=== PATIENT | female | born 1955 | race Caucasian/White ===

== ENCOUNTER 2023-09-06 12:58 | Outpatient (OUT) | payer MEDICARE, OTHER, SELFPAY ==
--- NOTE | 2023-09-06 | XR_ITS ---
The [address] [address] Patient Name: HÉCTOR PRIEST MRN: [id number] date: 1955 Sex: F Assigned Patient Location: [facility] Current Patient Location: [facility] Accession/Order Number: [id number] Exam Date: 09/06/2023 13:40 Report Date: 09/06/2023 14:42 At the request of: SANDY TUCKER Procedure: XR ankle LT min 3V EXAMINATION: XR ankle RT min 3V, XR foot RT min 3V, XR ankle LT min 3V, XR foot LT min 3V HISTORY: RIGHT ANKLE PAIN COMPARISON: 08/24/2023, 08/21/2023 FINDINGS: RIGHT FINDINGS: BONES: Normal. No significant arthropathy or acute abnormality. SOFT TISSUES: Mild ankle soft tissue swelling OTHER: Negative. LEFT FINDINGS: BONES: Subtle cortical irregularity and sclerosis of the calcaneus consistent with healing fracture. No new fracture or dislocation. SOFT TISSUES: Moderate soft tissue swelling of the ankle OTHER: Negative. XR/XR ankle LT min 3V IMPRESSION: RIGHT CONCLUSION: Mild ankle soft tissue swelling LEFT CONCLUSION: Subacute healing calcaneus fracture Electronically authenticated by: INÉS DELGADILLO Date: 09/06/2023 14:42
--- NOTE | 2023-09-06 | XR_ITS ---
The [address] [address] Patient Name: HÉCTOR PRIEST MRN: [id number] date: 1955 Sex: F Assigned Patient Location: [facility] Current Patient Location: [facility] Accession/Order Number: [id number] Exam Date: 09/06/2023 13:40 Report Date: 09/06/2023 14:42 At the request of: SANDY TUCKER Procedure: XR foot LT min 3V EXAMINATION: XR ankle RT min 3V, XR foot RT min 3V, XR ankle LT min 3V, XR foot LT min 3V HISTORY: RIGHT ANKLE PAIN COMPARISON: 08/24/2023, 08/21/2023 FINDINGS: RIGHT FINDINGS: BONES: Normal. No significant arthropathy or acute abnormality. SOFT TISSUES: Mild ankle soft tissue swelling OTHER: Negative. LEFT FINDINGS: BONES: Subtle cortical irregularity and sclerosis of the calcaneus consistent with healing fracture. No new fracture or dislocation. SOFT TISSUES: Moderate soft tissue swelling of the ankle OTHER: Negative. XR/XR foot LT min 3V IMPRESSION: RIGHT CONCLUSION: Mild ankle soft tissue swelling LEFT CONCLUSION: Subacute healing calcaneus fracture Electronically authenticated by: INÉS DELGADILLO Date: 09/06/2023 14:42
--- NOTE | 2023-09-06 | XR_ITS ---
The [address] [address] Patient Name: HÉCTOR PRIEST MRN: [id number] date: 1955 Sex: F Assigned Patient Location: [facility] Current Patient Location: [facility] Accession/Order Number: [id number] Exam Date: 09/06/2023 13:40 Report Date: 09/06/2023 14:42 At the request of: SANDY TUCKER Procedure: XR ankle RT min 3V EXAMINATION: XR ankle RT min 3V, XR foot RT min 3V, XR ankle LT min 3V, XR foot LT min 3V HISTORY: RIGHT ANKLE PAIN COMPARISON: 08/24/2023, 08/21/2023 FINDINGS: RIGHT FINDINGS: BONES: Normal. No significant arthropathy or acute abnormality. SOFT TISSUES: Mild ankle soft tissue swelling OTHER: Negative. LEFT FINDINGS: BONES: Subtle cortical irregularity and sclerosis of the calcaneus consistent with healing fracture. No new fracture or dislocation. SOFT TISSUES: Moderate soft tissue swelling of the ankle OTHER: Negative. XR/XR ankle RT min 3V IMPRESSION: RIGHT CONCLUSION: Mild ankle soft tissue swelling LEFT CONCLUSION: Subacute healing calcaneus fracture Electronically authenticated by: INÉS DELGADILLO Date: 09/06/2023 14:42
--- NOTE | 2023-09-06 | XR_ITS ---
The [address] [address] Patient Name: HÉCTOR PRIEST MRN: [id number] date: 1955 Sex: F Assigned Patient Location: [facility] Current Patient Location: [facility] Accession/Order Number: [id number] Exam Date: 09/06/2023 13:40 Report Date: 09/06/2023 14:42 At the request of: SANDY TUCKER Procedure: XR foot RT min 3V EXAMINATION: XR ankle RT min 3V, XR foot RT min 3V, XR ankle LT min 3V, XR foot LT min 3V HISTORY: RIGHT ANKLE PAIN COMPARISON: 08/24/2023, 08/21/2023 FINDINGS: RIGHT FINDINGS: BONES: Normal. No significant arthropathy or acute abnormality. SOFT TISSUES: Mild ankle soft tissue swelling OTHER: Negative. LEFT FINDINGS: BONES: Subtle cortical irregularity and sclerosis of the calcaneus consistent with healing fracture. No new fracture or dislocation. SOFT TISSUES: Moderate soft tissue swelling of the ankle OTHER: Negative. XR/XR foot RT min 3V IMPRESSION: RIGHT CONCLUSION: Mild ankle soft tissue swelling LEFT CONCLUSION: Subacute healing calcaneus fracture Electronically authenticated by: INÉS DELGADILLO Date: 09/06/2023 14:42
== END 2023-09-06 12:59 | disposition home or self-care (01) ==
LOC: RAD 12:59
PROVIDERS: Visit Provider Podiatrist Foot & Ankle Surgery
DX: M79.672 Pain in left foot (principal); M25.572 Pain in left ankle and joints of left foot; M79.671 Pain in right foot; M25.571 Pain in right ankle and joints of right foot; M25.471 Effusion, right ankle; S92.002D Unspecified fracture of left calcaneus, subsequent encounter for fracture with routine healing
CPT/HCPCS: 73610; 73630

== ENCOUNTER 2023-09-22 14:37 | Outpatient (OUT) | payer MEDICARE, OTHER, SELFPAY ==
--- NOTE | 2023-09-22 | XR_ITS ---
[address] [address] Patient Name: HÉCTOR PRIEST MRN: [id number] date: 1955 Sex: F Assigned Patient Location: [facility] Current Patient Location: Accession/Order Number: [id number] Exam Date: 09/22/2023 14:50 Report Date: 09/24/2023 18:14 At the request of: SANDY TUCKER Procedure: XR foot LT min 3V EXAM: XR foot LT min 3V HISTORY: LEFT FOOT F/U IMAGING COMPARISON: 09/06/2023 FINDINGS/IMPRESSION: 1. Healing fracture through the mid calcaneus with sclerosis along the fracture line. The alignment is similar as compared to the prior exam. 2. No ankle joint effusion. 3. Normal alignment of the bones of the forefoot. No significant joint degeneration. Electronically authenticated by: SAMRA SANTIAGO Date: 09/24/2023 18:14
--- OUTSIDE RECORDS SUMMARY | 2023-09-22 14:41 | XMS_ITS | CCD ---
Author Name Unknown Address [address] [facility] [facility] [address] [place] [address] Organization [facility] Care Team Providers [place] Adviser Name Role Phone DO Rashard Flower Primary Care Provider [phone] CHAGO Hernandez Emergency Provider DO Heath Rubin Attending Provider Heath Rubin Unavailable Josue Hernandez Admitting Unavailable Josue Hernandez Attending Unavailable Rashard Flower Primary Care Unavailable Heath Rubin Admitting Unavailable Heath Rubin Attending Unavailable Rashard Flower Primary Care Unavailable Heath Rubin Attending Unavailable Rashard Flower Primary Care Unavailable Heath Rubin Admitting Unavailable Allergies Allergy Classification Reported Allergen(s) Allergy Type Date of Onset Reaction(s) Facility (3 sources) Penicillins; Translations: [Penicillins] Allergy to substance 3 Anaphylaxis [facility] (2 sources) Bee pollen Drug Allergy Eyes [employer] Other (2 sources) Penicillin G Drug Allergy eyes [employer] [employer] [facility] Other Medications Current Medications Medication Drug Class(es) Dates Sig (Normalized) Sig (Original) acetaminophen 325 mg / oxyCODONE hydrochloride 5 mg oral tablet (2 sources) Opioid Agonist Start: 08-21-2023 take 1 tablet by mouth every eight hours Oxycodone-Acetami nophen (Percocet) 5-325 mg tablet Active 1 TAB PO Q8H 10 3 August 21, 2023 Completed/Discontinued Medications Medication Drug Class(es) Dates Sig (Normalized) Sig (Original) acyclovir 400 mg oral tablet (2 sources) Herpesvirus Nucleoside Analog DNA Polymerase Inhibitor, Herpes Simplex Virus Nucleoside Analog DNA Polymerase Inhibitor, Herpes Zoster Virus Nucleoside Analog DNA Polymerase Inhibitor Start: 06-15-2018 End: 06-22-2018 Acyclovir Discontinued 800 MG PO 5 times per day 70 7 June 14, 2018 11:00pm June 21, 2018 11:01pm while awake; give 5 doses in 24 hours calamine 80 mg/ml / pramoxine hydrochloride 10 mg/ml topical lotion (2 sources) Start: 06-15-2018 End: 11-07-2018 Pramoxine-Calamine (Caladryl) 1-8 % lotion Discontinued 1 APPLIC TOPICAL Four times daily 177 June 14, 2018 11:00pm November 07, 2018 2:20pm ibuprofen 600 mg oral tablet (2 sources) Nonsteroidal Anti-inflammatory Drug Start: 06-15-2018 End: 11-07-2018 take 600 mg by mouth three times daily Ibuprofen Discontinued 600 MG PO Three times daily June 14, 2018 11:00pm November 07, 2018 2:20pm Problems Problem Classification Problem Date Documented Da te Episodic/Chronic Fracture of lower limb (5 sources) Fracture of calcaneus; Translations: [Unspecified fracture of left calcaneus, initial encounter for closed fracture] Onset: 08-21-2023 08-21-2023 Episodic Other and unspecified benign neoplasm (2 sources) History of polyp of colon; Translations: [Personal history of colonic polyps] Episodic Other connective tissue disease (2 sources) Pain in left lower leg Episodic Other gastrointestinal disorders (2 sources) Occult blood in stools; Translations: [Other fecal abnormalities] 11-10-2018 Episodic Other upper respiratory disease (2 sources) Chronic rhinitis; Translations: [Chronic rhinitis] Chronic Substance-related disorders (2 sources) Smoker; Translations: [Nicotine dependence, unspecified, uncomplicated] Chronic Unclassified (1 source) Nondisplaced other fracture of tuberosity of left calcaneus, initial encounter for closed fracture; Translations: [Nondisplaced other fracture of tuberosity of left calcaneus, initial encounter for closed fracture] Onset: 08-24-2023 Unclassified (1 source) Pain in left lower leg; Translations: [Pain in left lower leg] Onset: 08-22-2023 Unclassified (1 source) Pain in left ankle and joints of left foot; Translations: [Pain in left ankle and joints of left foot] Onset: 08-21-2023 Results Test Name Value Interpretation Reference Range Facil ity CT foot LT wo conon 08-24-20 CT foot LT wo con [facility] Main [place] [id number] CT Scan Report Signed Patient: Elke Priest MR#: [id number] : 1955 Acct:[id number] Age/Sex: 67 / F ADM Date: 08/24/23 Loc: CT Room: Type: [facility] Attending Dr: Heath Rubin DO Copies to: Heath Rubin DO Ordering Provider: Heath Rubin DO Date of Service: 08/24/23 CT/CT foot LT wo con: S92.045a CT left foot without contrast TECHNIQUE: The CT exam was performed using one or more the following dose reduction techniques: Automated exposure control, adjustment of the MA and/or Kv according to patient size, or use of the iterative reconstruction technique. COMPARISON: None HISTORY: Left calcaneus fracture Mildly displaced calcaneal fracture. This involves the anterior process. Calcaneocuboid articulation unremarkable. There is involvement of the posterior facet suspected to involve 3 fragments with minimal articular step-off. There is subtle involvement of the middle facet with a preserved calcaneal talar articulation. No significant extension into the posterior calcaneus. Talus intact. Navicular intact. Cuboid intact. Distal tibia and fibula are intact. CT/CT foot LT wo con IMPRESSION: Mildly displaced calcaneal fracture. Mild posterior facet step-off. Involvement of the anterior process. Impression dictated by: Panfilo Bird M.D.08/24/2023 4:42 PM Dictation Location: [place] [address] Transcribed By: [facility] 08/24/23 1642 Dictated By: Panfilo Bird DO 08/24/23 1604 Signed By: 08/24/23 1642 Normal [facility] US venous duplex LE BIon US venous duplex LE [facility] Main [address] [address] Ultrasound Report Signed Patient: Elke Priest MR#: [id number] : 1955 Acct:[id number] Age/Sex: 67 / F ADM Date: 08/22/23 Loc: Room: [facility] Attending Dr: Heath Rubin DO Ordering Provider: Heath Rubin DO Date of Service: 08/22/23 US/US venous duplex LE BI: M79.662 Copies to: Heath Rubin DO BILATERAL LOWER EXTREMITY VENOUS DUPLEX INDICATION: Bilateral lower extremity edema, pain and tenderness. Recent left foot injury and fracture. PROCEDURE: Color-flow duplex scanning is used to interrogate the deep venous system of the right and left lower extremities. The common femoral vein, femoral vein and popliteal vein show good compressibility with normal proximal and distal augmentation. The calf veins are compressible. US/US venous duplex LE BI IMPRESSION: NO EVIDENCE FOR DEEP VEIN THROMBOSIS OR PROXIMAL SUPERFICIAL THROMBOPHLEBITIS IN THE RIGHT OR LEFT LOWER EXTREMITY. Impression dictated by: Adrian Barlow MD08/23/2023 10:21 AM Dictation Location: [place] [address] Tech: Jane Zepeda Transcribed By: LEIDY 08/23/23 1021 Dictated By: Adrian Barlow MD 08/23/23 1021 Signed By: 08/23/23 1021 Normal [facility] XR foot LT min 3V*on 023 XR foot LT min 3V* [facility] [address] XRay Report Signed Patient: Elke Priest MR#: [id number] : 1955 Acct:[id number] Age/Sex: 67 / F ADM Date: 08/21/23 Loc: ER Room: Type: [facility] ER Attending Dr: Copies to: Josue Hernandez APRN Ordering Provider: Josue Hernandez APRN Date of Service: 08/21/23 XR/XR foot LT min 3V*: Fall ([id number]) XR/XR knee LT 4V*: Fall ([id number]) XR/XR ankle LT min 3V*: Fall 4 views left knee plain film COMPARISON: None HISTORY: Fell 10 days ago. Left ankle swelling. Bruising. Left foot pain. Left knee pain. ACUTE FINDINGS: No acute findings DEGENERATIVE CHANGE: Unremarkable SOFT TISSUE FINDINGS: Unremarkable JOINT EFFUSION: None POSTOP CHANGES: None BONE MINERALIZATION: Adequate XR/XR knee LT 4V* IMPRESSION: No acute findings 3 views left ankle Lateral soft tissue swelling. Adequate bony alignment. The distal calcaneal fracture. IMPRESSION: Lateral soft tissue swelling. Distal calcaneal fracture. 3 views left foot Dorsal soft tissue swelling. Distal calcaneal fracture. No dislocation. IMPRESSION: Distal calcaneal fracture. Impression dictated by: Panfilo Bird M.D.08/21/2023 1:38 PM Dictation Location: [place] [address] Transcribed By: [facility] 08/21/23 1338 Dictated By: Panfilo Bird DO 08/21/23 1332 Signed By: 08/21/23 1338 [facility] Vital Signs Date Time Vital Sign Value Performing Clinician Facility 08-22-2023 13:45-0500 Body height 167.64 cm Heath Rubin Other [facility] Other 08-22-2023 13:45-0500 Body mass index (BMI) [Ratio] 20.01 kg/m2 Heath Rubin Other [facility] Other 08-22-2023 13:45-0500 Body weight 56.25 kg Heath Rubin Other [facility] Other 08-21-2023 12:35-0500 Body height 165.1 cm DO Rashard Oberer Work Phone: [facility] 08-21-2023 12:35-0500 Body temperature 98.5 [degF] DO Rashard Oberer Work Phone: [facility] 08-21-2023 12:35-0500 Body weight 56.69 kg DO Rashard Oberer Work Phone: [facility] 08-21-2023 12:35-0500 Diastolic blood pressure 75 mm[Hg] DO Rashard Oberer Work Phone: [facility] 08-21-2023 12:35-0500 Heart rate 94 /min DO Rashard Oberer Work Phone: [facility] 08-21-2023 12:35-0500 Respiratory rate 18 /min DO Rashard Oberer Work Phone: [facility] 08-21-2023 12:35-0500 SaO2% (BldA) [Mass fraction] 98 % DO Rashard Oberer Work Phone: [facility] 08-21-2023 12:35-0500 Systolic blood pressure 133 mm[Hg] DO Rashard Oberer Work Phone: [facility] Encounters Encounter Date Encounter Type Care Provider Facility Start: 08-29-2023 End: 08-29-2023 ambulatory Heath Rubin Other [facility] Other Start: 08-29-2023 Postop follow up vis it related to original px Heath Rubin [facility] Start: 08-24-2023 End: 08-24-2023 ambulatory Heath Rubin Facility:[facility] Start: 08-22-2023 End: 08-22-2023 ambulatory Heath Rubin Facility:[facility] Start: 08-22-2023 End: 08-22-2023 Patient encounter procedure DO Rashard Oberer Work Phone: [facility] Main [place] Work Phone: Start: 08-22-2023 End: 08-22-2023 ambulatory DO Rashard Oberer Work Phone: [facility] Work Phone: Start: 08-22-2023 FQ[facility] visit new patient Heath Rubin [facility] Start: 08-21-2023 End: 08-21-2023 Emergency department patient visit Josue Hernandez Facility:[facility] Start: 08-21-2023 End: 08-21-2023 Emergency department patient visit DO Rashard Oberer Work Phone: [facility] Work Phone: Procedures Date Procedure Procedure Detail Performing Clinician Start: 08-21-2023 Radiologic examinati on of knee DO Rashard Oberer Work Phone: Start: 08-21-2023 X-ray of left ankle DO Rashard Oberer Work Phone: Start: 08-21-2023 X-ray of left foot DO K arl Oberer Work Phone: Plan of Treatment Date Care Activity Detail Author Start: 08-22-2023 Duplex scan of lower limb veins US venous duplex LE BI [facility] Start: 08-22-2023 US Lower extremity v ein - bilateral [facility] Patient Education Heel Fracture (DC) Walking Boot [facility] Work Phone: Patient referral [facility] Work Phone: Immunizations Immunization Date Immunization Notes Care Provider Greg green NEGATED: Highlighted row has not occurred!10-04-2019 influenza, seasonal, injectable Patient Objection Heath Rubin Other [facility] Other NEGATED: Highlighted row has not occurred!09-29-2018 influenza, seasonal, injectable Patient Objection Heath Rubin Other [facility] Other Payers Date Payer Category Payer Medicare [id number] 2023 Self-pay [id number] 2023 Unknown [id number] Unknown [place] BC/BS [id number] Unknown [id number] Unknown [id number] Unknown [id number] Social History Date Type Detail Facility Start: 08-21-2023 Tobacco smoking status NHIS Smoker (finding) [facility] Start: 1955 Sex Assigned At Female F [facility] Sex Assigned At Sex Assigned At Bir th [facility] Other Evaluation note 08-29-2023 Note Date & Type Note Facility 08-29-2023 Evaluation note Encounter Date Diagnosis Assessment Notes Aug, Pain of left calf (ICD-10 - M79.662) Aug, Other closed nondisplaced fracture of tuberosity of left calcaneus, initial encounter (ICD-10 - S92.045A) CT reviewed with patient and family. Discussed with patient due to the fracture we will refer her to Dr. Hernandez in podiatry to discuss treatment options. Patient placed in AO splint. Instructed to wear splint at all times and to continue nonweight bearing. [facility] Other Evaluation note 08-22-2023 Note Date & Type Note Facility 08-22-2023 Evaluation note Encounter Date Diagnosis Assessment Notes Jul, Pain of left calf (ICD-10 - M79.662) The patient is experiencing posterior calf pain and swelling. We have to consider possible deep venous thrombosis (DVT). We will have the patient to [facility] and obtain an ultrasound of the leg. Patient is scheduled for ultrasound today at 3:00 pm Jul, Other closed nondisplaced fracture of tuberosity of left calcaneus, initial encounter (ICD-10 - S92.045A) Discussed with patient and company on the patient's symptoms, exam, and imaging. Likely etiologies of the patient's symptoms were discussed. Patient is likely suffering from a calcaneus fracture. We will obtain a STAT CT to check for possible surgical treatment options. Patient is scheduled on 08/24/2023 at 2:00 pm. Instructed patient to follow up in office after CT [facility] Other History general Narrative - Reported 11-10-2018 Note Date & Type Note Facility 11-10-2018 History general N arrative - Reported Type Medical History [id number] Surgical History Colonoscopy (+ hemoccult)- poly ps- Dr Rodriguez 11/10/18 [facility] Other Evaluation note Note Date & Type Note Facility Evaluation note No assessment information availa [facility] Work Phone: Chief Complaint and Reason for Visit Chief Complaint left foot inj Chief Complaint left foot inj Left calf pain Advance Directives No Advanced Directives Records Found Advance Directive Response Recorded Date/ Time Advance Directives No May 1:46pm Reason for Referral Reason Dr. Hernandez Diagnosis 1 Other closed nondisp laced fracture of tuberosity of left calcaneus, initial encounter (S92.045A) Referral Organization [facility] Referring Provider First Name Heath Referring Provider Last Name Caryn Referring Provider Specialty Orthopedic Surgery Referred Organization Unknown Facility Referred Provider Specialty Podiatry - S urgical Chiropody Referral Priority Routine Summary Purpose Family History No Family History Records Found Additional Source Comments Care Teams (unrecognized sec tion and content) Team Status: Active Member Role Status Dates Rashard Flower DO Primary Care Provider Active Team Status: Inactive Member Role Status Dates Rashard Flower DO Primary Care Provider Active Josue Hernandez APRN Emergency Provider Active Team Status: Inactive Member Role Status Dates Rashard Flower DO Primary Care Provider Active Heath Rubin DO Attending Provider Active Goals (unrecognized section and content) Goals may be documented in a n alternate sectionGoals may be documented in an alternate sectionNo InformationNo Information REASON FOR VISIT (unrecogniz ed section and content) Left Foot InjuryLeft Foot CT Results INFORMATION SOURCE (unrecogn ized section and content) DATE CREATED AUTHOR 08/30/2023 [facility] FOR RECORDS PERTAINING TO PATIENTS WHO ARE OR HAVE BEEN ENROLLED IN A CHEMICAL DEPENDENCY/SUBSTANCEABUSE PROGRAM, SOME INFORMATION MAY BE OMITTED. This clinical summary was aggregated from multiple sources. Caution should be exercised in using it in the provision of clinical care. This summary normalizes information from multiple sources, and as a consequence, information in this document may materially change the coding, format and clinical context of patient data. In addition, data may be omitted in some cases. CLINICAL DECISIONS SHOULD BE BASED ON THE PRIMARY CLINICAL RECORDS. [employer] [facility]. provides no warranty or guarantee of the accuracy or completeness of information in this document.
== END 2023-09-22 14:38 | disposition home or self-care (01) ==
LOC: RAD 14:37
PROVIDERS: Visit Provider Podiatrist Foot & Ankle Surgery
DX: S92.012D Displaced fracture of body of left calcaneus, subsequent encounter for fracture with routine healing (principal)
CPT/HCPCS: 73630

== ENCOUNTER 2023-10-12 14:42 | Outpatient (OUT) | payer MEDICARE, OTHER, SELFPAY ==
--- NOTE | 2023-10-12 | XR_ITS ---
The [address] [address] Patient Name: HÉCTOR PRIEST MRN: [id number] date: 1955 Sex: F Assigned Patient Location: [facility] Current Patient Location: [facility] Accession/Order Number: [id number] Exam Date: 10/12/2023 14:50 Report Date: 10/12/2023 15:32 At the request of: SANDY TUCKER Procedure: XR foot LT min 3V PROCEDURE: XR foot LT min 3V COMPARISON: 09/22/2023 HISTORY: LEFT FOOT PAIN FINDINGS: BONES:Continued healing of a calcaneus fracture, less evident on the current exam. Interval progression of a diffuse permeative pattern of the bones consistent with osteopenia. No new fracture or dislocation SOFT TISSUES:Diffuse soft tissue swelling EFFUSION:None visible. OTHER: Negative. XR/XR foot LT min 3V IMPRESSION: Stable healing calcaneus fracture with progression of osteopenia Electronically authenticated by: INÉS DELGADILLO Date: 10/12/2023 15:32
--- OUTSIDE RECORDS SUMMARY | 2023-10-12 14:45 | XMS_ITS | CCD ---
Author Name Unknown Address [address] [place] [address] Organization [facility] Care Team Providers Care Archivist Nonprofit Foundation Name Role Phone DO Rashard Folwer Primary Care Provider CHAGO Hernandez Emergency Provider DO Heath Rubin [...] Translations: [Penicillins] Allergy to substance 3 Anaphylaxis [facility] (2 sources) Bee pollen Drug Allergy Eyes Patient Home Monitoring Other (2 sources) Penicillin G Drug Allergy eyes [facility] [employer] [facility] [employer] Other Medications Current Medications Medication Drug Class(es) [...] conon 08-24-20 CT foot LT wo con [facility] Main [place] [id number] CT Scan Report Signed Patient: Elke Priest MR#: [id number] : 1955 Acct:[id number] Age/Sex: 67 / F ADM Date: 08/24/23 Loc: CT Room: Type: [facility] Attending Dr: Heath Rubin DO Copies [...] Panfilo Bird M.D.08/24/2023 4:42 PM Dictation Location: [place] [address] Transcribed By: [facility] 08/24/23 1642 Dictated By: Panfilo Bird DO 08/24/23 1604 Signed By: 08/24/23 1642 Normal [facility] US venous duplex LE BIon US venous duplex LE [facility] Main [address] [address] Ultrasound Report Signed Patient: Elke Priest MR#: [id number] : 1955 Acct:[id number] Age/Sex: 67 / F ADM Date: 08/22/23 Loc: [facility]: [facility] Dr: Heath Rubin DO [...] Adrian Barlow MD08/23/2023 10:21 AM Dictation Location: [place] [address] Tech: Jane Zepeda Transcribed By: LEIDY 08/23/23 1021 Dictated By: Adrian Barlow MD 08/23/23 1021 Signed By: 08/23/23 1021 Normal [facility] XR foot LT min 3V*on 023 XR foot LT min 3V* [place] [address] XRay Report Signed Patient: Elke Priest MR#: [id number] : 1955 Acct:[id number] Age/Sex: 67 / F ADM Date: 08/21/23 Loc: ER Room: Type: [facility] ER Attending Dr: Copies to: Josue Hernandez APRN Ordering Provider: Josue Hernandez APRN Date of Service: 08/21/23 XR/XR foot LT min 3V*: Fall ([id number]) XR/XR knee LT 4V*: Fall ([id number]) XR/XR ankle LT min 3V*: Fall 4 [...] Panfilo Bird M.D.08/21/2023 1:38 PM Dictation Location: [place] [address] Transcribed By: [facility] 08/21/23 1338 Dictated By: Panfilo Bird DO 08/21/23 1332 Signed By: 08/21/23 1338 [facility] Vital Signs Date Time Vital Sign Value Performing Clinician Facility 08-22-2023 13:45-0500 Body height 167.64 cm Heath Rubin Other [employer] Other 08-22-2023 13:45-0500 Body mass index (BMI) [Ratio] 20.01 kg/m2 Heath Rubin Other [employer] [facility] [employer] Other 08-22-2023 13:45-0500 Body weight 56.25 kg Heath Rubin Other [facility] [employer] Other 08-21-2023 12:35-0500 Body height 165.1 cm DO Rashard Oberer Work Phone: [facility] 08-21-2023 12:35-0500 Body temperature 98.5 [degF] DO Rashard Oberer Work Phone: [facility] 08-21-2023 12:35-0500 Body weight 56.69 kg DO Rashard Oberer Work Phone: [facility] 08-21-2023 12:35-0500 Diastolic blood pressure 75 mm[Hg] DO Rashard Oberer Work Phone: [facility] 08-21-2023 12:35-0500 Heart rate 94 /min DO Rashard Oberer Work Phone: [facility] 08-21-2023 12:35-0500 Respiratory rate 18 /min DO Rashard Oberer Work Phone: [facility] 08-21-2023 12:35-0500 SaO2% (BldA) [Mass fraction] 98 % DO Rashard Oberer Work Phone: [facility] 08-21-2023 12:35-0500 Systolic blood pressure 133 mm[Hg] DO Rashard Oberer Work Phone: [facility] Encounters Encounter Date Encounter Type Care Provider Facility Start: 08-29-2023 End: 08-29-2023 ambulatory Heath Rubin Other [employer] Other Start: 08-29-2023 Postop follow up vis it related to original px Heath Rubin [facility] Start: 08-24-2023 End: 08-24-2023 ambulatory Heath Rubin Facility:[facility] Start: 08-22-2023 End: 08-22-2023 ambulatory Heath Rubin Facility:[facility] Start: 08-22-2023 End: 08-22-2023 Patient encounter procedure DO Rashard Oberer Work Phone: [facility] Main [place] Work Phone: Start: 08-22-2023 End: 08-22-2023 ambulatory DO Rashard Oberer Work Phone: [facility] Work Phone: Start: 08-22-2023 FQHC visit new patient Heath Rubin [facility] Start: 08-21-2023 End: 08-21-2023 Emergency department patient visit Josue Hernandez Facility:[facility] Start: 08-21-2023 End: 08-21-2023 Emergency department patient visit DO Rashard Oberer Work Phone: [facility] Work Phone: Procedures Date Procedure [...] limb veins US venous duplex LE BI [facility] Start: 08-22-2023 US Lower extremity v ein - bilateral [facility] Patient Education Heel Fracture (DC) Walking Boot [facility] Work Phone: Patient referral [facility] Work Phone: Immunizations Immunization Date Immunization Notes Care Provider Greg green NEGATED: Highlighted row has not occurred!10-04-2019 influenza, seasonal, injectable Patient Objection Heath Rubin Other [employer] Other NEGATED: Highlighted row has not occurred!09-29-2018 influenza, seasonal, injectable Patient Objection Heath Rubin Other [employer] [facility] [employer] Other Payers Date Payer Category Payer Medicare [id number] 2023 Self-pay [id number] 2023 Unknown [id number] Unknown [place] BC/BS [id number] Unknown [id number] Unknown [id number] [id number] [id number] Unknown [id number] Social History Date Type Detail Facility Start: 08-21-2023 Tobacco smoking status NHIS Smoker (finding) [facility] Start: 1955 Sex Assigned At Female F [facility] Sex Assigned At Sex Assigned At Bir th [employer] [facility] [employer] Other Evaluation note 08-29-2023 Note Date & [...] all times and to continue nonweight bearing. [facility] [employer] Other Evaluation note 08-22-2023 Note Date & Type Note Facility 08-22-2023 Evaluation note Encounter Date Diagnosis Assessment Notes Jul, Pain of left calf (ICD-10 - M79.662) The patient is experiencing posterior calf pain and swelling. We have to consider possible deep venous thrombosis (DVT). We will have the patient to [facility] and obtain an ultrasound of the leg. [...] to follow up in office after CT [facility] [employer] Other History general Narrative - Reported 11-10-2018 Note Date & Type Note Facility 11-10-2018 History general N arrative - Reported Type Medical History [id number] Surgical History Colonoscopy (+ hemoccult)- poly ps- Dr Rodriguez 11/10/18 [facility] [employer] Other Evaluation note Note Date & Type Note Facility Evaluation note No assessment information availa [facility] Work Phone: Chief Complaint and Reason for Visit Chief Complaint left foot inj Chief Complaint left foot inj Left calf pain Advance Directives No Advanced Directives Records Found Advance Directive Response Recorded Date/ Time Advance Directives No May 1:46pm Reason for Referral Reason Dr. Hernandez Diagnosis 1 Other closed nondisp laced fracture of tuberosity of left calcaneus, initial encounter (S92.045A) Referral Organization [facility] Referring Provider First Name Heath [...] section and content) DATE CREATED AUTHOR 08/30/2023 [facility] FOR RECORDS PERTAINING TO PATIENTS WHO ARE [...] BE BASED ON THE PRIMARY CLINICAL RECORDS. [employer] [facility]. provides no warranty or guarantee of the accuracy or completeness of information in this document.
== END 2023-10-12 14:43 | disposition home or self-care (01) ==
LOC: RAD 14:43
PROVIDERS: Visit Provider Podiatrist Foot & Ankle Surgery
DX: S92.012D Displaced fracture of body of left calcaneus, subsequent encounter for fracture with routine healing (principal)
CPT/HCPCS: 73630

== ENCOUNTER 2023-11-02 14:06 | Outpatient (OUT) | payer MEDICARE, OTHER, SELFPAY ==
--- NOTE | 2023-11-02 | XR_ITS ---
The [address] [address] Patient Name: HÉCTOR PRIEST MRN: [id number] date: 1955 Sex: F Assigned Patient Location: [facility] Current Patient Location: RAD Accession/Order Number: [id number] Exam Date: 11/02/2023 14:37 Report Date: 11/02/2023 15:44 At the request of: SANDY TUCKER Procedure: XR foot LT min 3V PROCEDURE: XR foot LT min 3V COMPARISON: 10/12/2023, 09/22/2023 HISTORY: LEFT FOOT PAIN FINDINGS: BONES:Stable healing calcaneal fracture. Progression of diffuse permeative pattern of the bones with cortical thinning SOFT TISSUES:Negative. No visible soft tissue swelling. EFFUSION:None visible. OTHER: Negative. XR/XR foot LT min 3V IMPRESSION: Stable calcaneal fracture Significant interval progression of osteopenia Electronically authenticated by: INÉS DELGADILLO Date: 11/02/2023 15:44
--- OUTSIDE RECORDS SUMMARY | 2023-11-02 14:11 | XMS_ITS | CCD ---
Author Name Unknown Address [address] [place] [address] Organization [facility] Care Team Providers Care Fraud Prevention Analyst Name Role Phone DO Rashard Flower Primary Care Provider [phone] CHAGO Hernandez Emergency Provider DO Heath Rubin [...] Translations: [Penicillins] Allergy to substance 3 Anaphylaxis [facility] (2 sources) Bee pollen Drug Allergy Eyes [employer] Other (2 sources) Penicillin G Drug Allergy eyes [facility] [employer] [facility] [employer] Other Medications Current Medications Medication Drug Class(es) [...] conon 08-24-20 CT foot LT wo con [facility] Main [place] [id number] CT Scan Report Signed Patient: Elke Priest MR#: [id number] : 1955 Acct:[id number] Age/Sex: 67 / F ADM Date: 08/24/23 Loc: CT Room: Type: [facility] Attending Dr: Heath Rubin DO Copies [...] Panfilo Bird M.D.08/24/2023 4:42 PM Dictation Location: [place] [address] Transcribed By: [facility] 08/24/23 1642 Dictated By: Panfilo Bird DO 08/24/23 1604 Signed By: 08/24/23 1642 Normal [facility] US venous duplex LE BIon US venous duplex LE [facility] Main [address] [address] Ultrasound Report Signed Patient: Elke Priest MR#: [id number] : 1955 Acct:[id number] Age/Sex: 67 / F ADM Date: 08/22/23 Loc: [facility]: [facility]: Heath Rubin DO Ordering Provider: [...] Adrian Barlow MD08/23/2023 10:21 AM Dictation Location: [place] [address] Tech: Jane Zepeda Transcribed By: LEIDY 08/23/23 1021 Dictated By: Adrian Barlow MD 08/23/23 1021 Signed By: 08/23/23 1021 Normal [facility] XR foot LT min 3V*on 023 XR foot LT min 3V* [facility] [place] [address] XRay Report Signed Patient: Elke Priest MR#: [id number] : 1955 Acct:[id number] Age/Sex: 67 / F ADM Date: 08/21/23 Loc: ER Room: Type: [facility] ER Attending Dr: Copies to: Josue Hernandez APRN Ordering Provider: Josue Hernandez APRN Date of Service: 08/21/23 XR/XR foot LT min 3V*: Fall ([id number]) XR/XR knee LT 4V*: Fall ([id number]) XR/XR ankle LT min 3V*: Fall 4 [...] Panfilo Bird M.D.08/21/2023 1:38 PM Dictation Location: [place] [address] Transcribed By: [facility] 08/21/23 1338 Dictated By: Panfilo Bird DO 08/21/23 1332 Signed By: 08/21/23 1338 [facility] Vital Signs Date Time Vital Sign Value Performing Clinician Facility 08-22-2023 13:45-0500 Body height 167.64 cm Heath Rubin Other [employer] Other 08-22-2023 13:45-0500 Body mass index (BMI) [Ratio] 20.01 kg/m2 Heath Rubin Other [employer] [facility] [employer] Other 08-22-2023 13:45-0500 Body weight 56.25 kg Heath Rubin Other [facility] [employer] Other 08-21-2023 12:35-0500 Body height 165.1 cm DO Rashard Oberer Work Phone: [facility] 08-21-2023 12:35-0500 Body temperature 98.5 [degF] DO Rashard Oberer Work Phone: [facility] 08-21-2023 12:35-0500 Body weight 56.69 kg DO Rashard Oberer Work Phone: [facility] 08-21-2023 12:35-0500 Diastolic blood pressure 75 mm[Hg] DO Rashard Oberer Work Phone: [facility] 08-21-2023 12:35-0500 Heart rate 94 /min DO Rashard Oberer Work Phone: [facility] 08-21-2023 12:35-0500 Respiratory rate 18 /min DO Rashard Oberer Work Phone: [facility] 08-21-2023 12:35-0500 SaO2% (BldA) [Mass fraction] 98 % DO Rashard Oberer Work Phone: [facility] 08-21-2023 12:35-0500 Systolic blood pressure 133 mm[Hg] DO Rashard Oberer Work Phone: [facility] Encounters Encounter Date Encounter Type Care Provider Facility Start: 08-29-2023 End: 08-29-2023 ambulatory Heath Rubin Other [employer] Other Start: 08-29-2023 Postop follow up vis it related to original px Heath Rubin [facility] Start: 08-24-2023 End: 08-24-2023 ambulatory Heath Rubin Facility:[facility] Start: 08-22-2023 End: 08-22-2023 ambulatory Heath Rubin Facility:[facility] Start: 08-22-2023 End: 08-22-2023 Patient encounter procedure DO Rashard Oberer Work Phone: [facility] Main [place] Work Phone: Start: 08-22-2023 End: 08-22-2023 ambulatory DO Rashard Oberer Work Phone: [facility] Work Phone: Start: 08-22-2023 FQHC visit new patient Heath Rubin [facility] Start: 08-21-2023 End: 08-21-2023 Emergency department patient visit Josue Hernandez Facility:[facility] Start: 08-21-2023 End: 08-21-2023 Emergency department patient visit DO Rashard Oberer Work Phone: [facility] Work Phone: Procedures Date [...] limb veins US venous duplex LE BI [facility] Start: 08-22-2023 US Lower extremity v ein - bilateral [facility] Patient Education Heel Fracture (DC) Walking Boot [facility] Work Phone: Patient referral [facility] Work Phone: Immunizations Immunization Date Immunization Notes Care Provider Greg green NEGATED: Highlighted row has not occurred!10-04-2019 influenza, seasonal, injectable Patient Objection Heath Rubin Other [employer] Other NEGATED: Highlighted row has not occurred!09-29-2018 influenza, seasonal, injectable Patient Objection Heath Rubin Other [employer] [facility] [employer] Other Payers Date Payer Category Payer Medicare [id number] 2023 Self-pay [id number] 2023 Unknown [id number] Unknown [place] BC/BS [id number] Unknown [id number] [id number] [id number] Unknown [id number] 2.16.8 [id number] Unknown [id number] [id number] [id number] Social History Date Type Detail Facility Start: 08-21-2023 Tobacco smoking status NHIS Smoker (finding) [facility] Start: 1955 Sex Assigned At Female F [facility] Sex Assigned At Sex Assigned At Bir th [employer] [facility] [employer] Other Evaluation note 08-29-2023 Note Date & [...] all times and to continue nonweight bearing. [facility] [employer] Other Evaluation note 08-22-2023 Note Date & Type Note Facility 08-22-2023 Evaluation note Encounter Date Diagnosis Assessment Notes Jul, Pain of left calf (ICD-10 - M79.662) The patient is experiencing posterior calf pain and swelling. We have to consider possible deep venous thrombosis (DVT). We will have the patient to [facility] and obtain an ultrasound of the leg. [...] to follow up in office after CT [facility] [employer] Other History general Narrative - Reported 11-10-2018 Note Date & Type Note Facility 11-10-2018 History general N arrative - Reported Type Medical History [id number] Surgical History Colonoscopy (+ hemoccult)- poly ps- Dr Rodriguez 11/10/18 [facility] [employer] Other Evaluation note Note Date & Type Note Facility Evaluation note No assessment information availa [facility] Work Phone: Chief Complaint and [...] left calcaneus, initial encounter (S92.045A) Referral Organization [facility] Referring Provider First [...] section and content) DATE CREATED AUTHOR 08/30/2023 [facility] FOR RECORDS PERTAINING TO PATIENTS WHO [...] BE BASED ON THE PRIMARY CLINICAL RECORDS. [employer] [facility]. provides no warranty or guarantee of the accuracy or completeness of information in this document.
== END 2023-11-02 14:07 | disposition home or self-care (01) ==
LOC: RAD 14:06
PROVIDERS: Visit Provider Podiatrist Foot & Ankle Surgery
DX: S92.012D Displaced fracture of body of left calcaneus, subsequent encounter for fracture with routine healing (principal)
CPT/HCPCS: 73630

== ENCOUNTER 2023-12-06 13:10 | Outpatient (OUT) | payer MEDICARE, OTHER, SELFPAY ==
--- NOTE | 2023-12-06 | XR_ITS ---
[address] [address] Patient Name: HÉCTOR PRIEST MRN: [id number] date: 1955 Sex: F Assigned Patient Location: Current Patient Location: Accession/Order Number: [id number] Exam Date: 12/06/2023 13:21 Report Date: 12/06/2023 15:47 At the request of: TRACEY LAZO Procedure: XR foot LT min 3V PROCEDURE: XR foot LT min 3V COMPARISON: 11/02/2023 HISTORY: LEFT FOOT PAIN FINDINGS: BONES:No acute fracture or dislocation. Mild degenerative changes. Diffuse permeative pattern of the bones. SOFT TISSUES:Negative. No visible soft tissue swelling. EFFUSION:None visible. OTHER: Negative. XR/XR foot LT min 3V IMPRESSION: Progression of osteopenia Electronically authenticated by: INÉS DELGADILLO Date: 12/06/2023 15:47
== END 2023-12-06 13:11 | disposition home or self-care (01) ==
LOC: EC 13:10
PROVIDERS: Visit Provider Physician Assistant
DX: S92.012D Displaced fracture of body of left calcaneus, subsequent encounter for fracture with routine healing (principal); M85.872 Other specified disorders of bone density and structure, left ankle and foot
CPT/HCPCS: 73630

== ENCOUNTER 2024-01-03 13:05 | Outpatient (OUT) | payer MEDICARE, OTHER, SELFPAY ==
--- NOTE | 2024-01-03 | XR_ITS ---
The [address] [address] Patient Name: HÉCTOR PRIEST MRN: [id number] date: 1955 Sex: F Assigned Patient Location: Current Patient Location: Accession/Order Number: [id number] Exam Date: 01/03/2024 13:10 Report Date: 01/03/2024 16:36 At the request of: SANDY TUCKER Procedure: XR foot LT min 3V PROCEDURE: XR foot LT min 3V COMPARISON: 12/06/2023 HISTORY: LEFT FOOT PAIN FINDINGS: BONES:No acute fracture or dislocation. Marked permeative pattern of the bones, grossly stable SOFT TISSUES:Negative. No visible soft tissue swelling. EFFUSION:None visible. OTHER: Negative. XR/XR foot LT min 3V IMPRESSION: Grossly stable permeative pattern of the bones suggesting osteopenia Electronically authenticated by: INÉS DELGADILLO Date: 01/03/2024 16:36
--- OUTSIDE RECORDS SUMMARY | 2024-01-03 13:10 | XMS_ITS | CCD ---
Author Organization [facility] Care Team Providers Care Purchase Analyst Name Role Phone DO Rashard Flower Primary Care Provider [phone] CHAGO Hernandez Emergency Provider DO Heath Rubin Attending Provider Heath Rubin Unavailable Heath Rubin Admitting Unavailable Heath Ruibn Attending Unavailable Rashard Flower Primary Care Unavailable Heath Rubin Attending Unavailable Rashard Flower Primary Care Unavailable Heath Rubin Admitting Unavailable Josue Hernandez Admitting Unavailable Josue Hernandez Attending Unavailable Rashard Flower Primary Care Unavailable Allergies Allergy Classification Reported Allergen(s) Allergy Type Date of Onset Reaction(s) Facility (3 sources) Penicillins; Translations: [Penicillins] Allergy to substance 3 Anaphylaxis [facility] (2 sources) Bee pollen Drug Allergy [facility] Other (2 sources) Penicillin G Drug Allergy eyes [facility] Other (1 source) Bee pollen Drug allergy (disorder) [address] [place] [address] Repository (1 source) Penicillin Drug Allergy [address] [place] [address] Repository Medications Current Medications Medication Drug Class(es) Dates [...] Discontinued 1 APPLIC TOPICAL Four times daily June 14, 2018 11:00pm November [...] conon 08-24-20 CT foot LT wo con [facility] Main [address] [address] [address] Scan Report Signed Patient: Elke Priest MR#: [id number] : 1955 Acct:[id number] Age/Sex: 67 / F ADM Date: 08/24/23 Loc: CT Room: Type: [facility] Attending Dr: Heath Rubin DO Copies to: [...] Panfilo Bird M.D.08/24/2023 4:42 PM Dictation Location: [place] [address] Transcribed By: [facility] 08/24/23 1642 Dictated By: Panfilo Bird DO 08/24/23 1604 Signed By: 08/24/23 1642 Normal [facility] US venous duplex LE BIon US venous duplex LE BI [facility] Main [address] [address] Ultrasound Report Signed Patient: Elke Priest MR#: [id number] : 1955 Acct:[id number] Age/Sex: 67 / F ADM Date: 08/22/23 Loc: Room: Type: [facility] Attending Dr: Heath Rubin DO Ordering Provider: [...] Adrian Barlow MD08/23/2023 10:21 AM Dictation Location: [place] [address] Tech: Jane Mchughmoriah Transcribed By: LEIDY 08/23/23 1021 Dictated By: Adrian Barlow MD 08/23/23 1021 Signed By: 08/23/23 1021 Normal [facility] XR foot LT min 3V*on 023 XR foot LT min 3V* [facility] [place] [address] XRay Report Signed Patient: Elke Priest MR#: [id number] : 1955 Acct:[id number] Age/Sex: 67 / F ADM Date: 08/21/23 Loc: ER Room: Type: [facility] ER Attending Dr: Copies to: Josue Hernandez APRN Ordering Provider: Josue Hernandez APRN Date of Service: 08/21/23 XR/XR foot LT min 3V*: Fall ([id number]) XR/XR knee LT 4V*: Fall ([id number]) XR/XR ankle LT min 3V*: Fall 4 [...] Panfilo Bird M.D.08/21/2023 1:38 PM Dictation Location: [place] [address] Transcribed By: [facility] 08/21/23 1338 Dictated By: Panfilo Bird DO 08/21/23 1332 Signed By: 08/21/23 1338 [facility] Vital Signs Date Time Vital Sign Value Performing Clinician Facility 08-22-2023 13:45-0500 Body height 167.64 cm Heath Caryn Other [facility] [employer] [facility] Other 08-22-2023 13:45-0500 Body mass index (BMI) [Ratio] 20.01 kg/m2 Heath Caryn Other [facility] Other 08-22-2023 13:45-0500 Body weight 56.25 kg Heath Caryn Other [facility] Other 08-21-2023 12:35-0500 Body height 165.1 cm DO Rashard Oberer Work Phone: [facility] 08-21-2023 12:35-0500 Body temperature 98.5 [degF] DO Rashard Oberer Work Phone: [facility] 08-21-2023 12:35-0500 Body weight 56.69 kg DO Rashard Oberer Work Phone: [facility] 08-21-2023 12:35-0500 Diastolic blood pressure 75 mm[Hg] DO Rashard Oberer Work Phone: [facility] 08-21-2023 12:35-0500 Heart rate 94 /min DO Rashard Oberer Work Phone: [facility] 08-21-2023 12:35-0500 Respiratory rate 18 /min DO Rashard Oberer Work Phone: [facility] 08-21-2023 12:35-0500 SaO2% (BldA) [Mass fraction] 98 % DO Rashard Oberer Work Phone: [facility] 08-21-2023 12:35-0500 Systolic blood pressure 133 mm[Hg] DO Rashard Oberer Work Phone: [facility] Encounters Encounter Date Encounter Type Care Provider Facility Start: 08-29-2023 End: 08-29-2023 ambulatory Heath Rubin Other [facility] Other Start: 08-29-2023 Postop follow up vis it related to original px Heath Rubin [facility] Start: 08-24-2023 End: 08-24-2023 ambulatory Heath Rubin Facility:[facility] Start: 08-22-2023 End: 08-22-2023 ambulatory Heath Rubin Facility:[facility] Start: 08-22-2023 End: 08-22-2023 Patient encounter procedure DO Rashard Oberer Work Phone: [facility] [place] Work Phone: Start: 08-22-2023 End: 08-22-2023 ambulatory DO Rashard Oberer Work Phone: [facility] Work Phone: Start: 08-22-2023 FQHC visit new patient Heath Rubin [facility] Start: 08-21-2023 End: 11-26-2023 Emergency department patient visit [facility] Start: 08-21-2023 End: 08-21-2023 Emergency department patient visit DO Rashard Oberer Work Phone: [facility] Work Phone: Procedures [...] limb veins US venous duplex LE BI [facility] Start: 08-22-2023 US Lower extremity v ein - bilateral [facility] Patient Education Heel Fracture (DC) Walking Boot [facility] Work Phone: Patient referral [facility] Work Phone: Immunizations Immunization Date Immunization Notes Care Provider Greg green NEGATED: Highlighted row has not occurred!10-04-2019 influenza, seasonal, injectable Patient Objection Heath Rubin Other [facility] Other NEGATED: Highlighted row has not occurred!09-29-2018 influenza, seasonal, injectable Patient Objection Heath Rubin Other [facility] Other Payers Date Payer Category Payer Medicare [id number] 2023 Self-pay [id number] 2023 Unknown [id number] Unknown Brian BC/BS [id number] Unknown [id number] Unknown [id number] Unknown [id number] Social History Date Type Detail Facility Start: 08-21-2023 Tobacco smoking status NHIS Smoker (finding) [facility] Start: 1955 Sex Assigned At Female F [facility] Sex Assigned At Sex Assigned At Bir th [facility] Other Evaluation note 08-29-2023 Note Date & [...] all times and to continue nonweight bearing. [facility] Other Evaluation note 08-22-2023 Note Date & Type Note Facility 08-22-2023 Evaluation note Encounter Date Diagnosis Assessment Notes Jul, Pain of left calf (ICD-10 - M79.662) The patient is experiencing posterior calf pain and swelling. We have to consider possible deep venous thrombosis (DVT). We will have the patient to [facility] and obtain an ultrasound of the leg. [...] to follow up in office after CT [facility] Other History general Narrative - Reported 11-10-2018 Note Date & Type Note Facility 11-10-2018 History general N arrative - Reported Type Medical History [id number] Surgical History Colonoscopy (+ hemoccult)- poly ps- Dr Rodriguez 11/10/18 [facility] Other Evaluation note Note Date & Type Note Facility Evaluation note No assessment information availa [facility] Work Phone: Chief Complaint and Reason for Visit Chief Complaint left foot inj Chief Complaint left foot inj Left calf pain Advance Directives No Advanced Directives Records Found Advance Directive Response Recorded Date/ Time Advance Directives No May 1:46pm Reason for Referral Reason Dr. Hernandez Diagnosis 1 Other closed nondisp laced fracture of tuberosity of left calcaneus, initial encounter (S92.045A) Referral Organization [facility] Referring Provider First Name Heath [...] ized section and content) DATE CREATED AUTHOR 11/04/2023 [facility] FOR RECORDS PERTAINING TO PATIENTS WHO [...] BE BASED ON THE PRIMARY CLINICAL RECORDS. [facility]. provides no warranty or guarantee of the accuracy or completeness of information in this document.
== END 2024-01-03 13:06 | disposition home or self-care (01) ==
LOC: EC 13:05
PROVIDERS: Visit Provider Podiatrist Foot & Ankle Surgery
DX: M79.672 Pain in left foot (principal); M85.80 Other specified disorders of bone density and structure, unspecified site
CPT/HCPCS: 73630

== ENCOUNTER 2024-02-01 12:45 | Outpatient (OUT) | payer MEDICARE, OTHER, SELFPAY ==
--- NOTE | 2024-02-01 12:50 | CT_ITS ---
The [address] [address] Patient Name: HÉCTOR PRIEST MRN: [id number] date: 1955 Sex: F Assigned Patient Location: CT Current Patient Location: CT Accession/Order Number: [id number] Exam Date: 02/01/2024 12:57 Report Date: 02/01/2024 14:43 At the request of: TRACEY LAZO Procedure: CT ankle LT wo con EXAMINATION: CT ankle LT wo con HISTORY: Left calcaneus fracture COMPARISON: 01/03/2024 TECHNIQUE: Multi-planar CT images were created without IV contrast. Dose reduction techniques were achieved by using automated exposure control and/or adjustment of mA and/or kV according to patient size and/or use of iterative reconstruction technique. FINDINGS: BONES: Marked diffuse osteopenia. Permeative pattern of the bones and significant cortical thinning. There is contour deformity of the calcaneus with the areas of cortical and trabecular disruption suggestive but not definitive for fracture most significant along the posterior calcaneus along the posterior margin of the posterior talocalcaneal facet SOFT TISSUES: Negative. No visible soft tissue swelling. EFFUSION: None visible. OTHER: Negative. CT/CT ankle LT wo con IMPRESSION: Contour deformity and trabecular disruption of the calcaneus possibly representing subtle nondisplaced fractures. This could represent chronic fractures. Marked diffuse osteopenia Electronically authenticated by: INÉS DELGDAILLO Date: 02/01/2024 14:43
== END 2024-02-01 12:46 | disposition home or self-care (01) ==
LOC: CT 12:46
PROVIDERS: Visit Provider Physician Assistant
DX: S92.002D Unspecified fracture of left calcaneus, subsequent encounter for fracture with routine healing (principal)
CPT/HCPCS: 73700

== ENCOUNTER 2024-03-21 13:09 | Outpatient (OUT) | payer MEDICARE, OTHER, SELFPAY ==
--- NOTE | 2024-03-21 | XR_ITS ---
The [address] [address] Patient Name: HÉCTOR PRIEST MRN: [id number] date: 1955 Sex: F Assigned Patient Location: Current Patient Location: Accession/Order Number: [id number] Exam Date: 03/21/2024 13:12 Report Date: 03/22/2024 07:08 At the request of: SANDY TUCKER Procedure: XR calcaneus LT min 2V PROCEDURE: XR calcaneus LT min 2V COMPARISON: 02/01/2024 HISTORY: LEFT CALCANEUS PAIN FINDINGS: BONES:Subtle sclerosis of the mid/posterior calcaneus, healed fracture. Permeative pattern of the bones, underlying osteopenia. No additional fracture or dislocation SOFT TISSUES:Negative. No visible soft tissue swelling. EFFUSION:None visible. OTHER: Negative. XR/XR calcaneus LT min 2V IMPRESSION: No acute abnormality Electronically authenticated by: INÉS DELGADILLO Date: 03/22/2024 07:08
--- OUTSIDE RECORDS SUMMARY | 2024-03-21 13:28 | XMS_ITS | CCD ---
Author Organization [facility] Care Team Providers Care Product Manager Name Role Phone DO Rashard Flower Primary Care Provider CHAGO Hernandez Emergency Provider DO Heath Rubin Attending Provider Heath Rubin Unavailable Heath Rubin Admitting Unavailable Heath Rubin Attending Unavailable Rashard Flower Primary Care Unavailable Heath Rubin Attending Unavailable Rashard Flower Primary Care Unavailable Heath Rubin Admitting Unavailable Josue Hernandez Admitting Unavailable Josue Hernandez Attending Unavailable Rashard Flower Primary Care Unavailable Allergies Allergy Classification Reported Allergen(s) Allergy Type Date of Onset Reaction(s) Facility (3 sources) Penicillins; Translations: [Penicillins] Allergy to substance 3 Anaphylaxis [facility] (2 sources) Bee pollen Drug Allergy Eyes [facility] [employer] Other (2 sources) Penicillin G Drug Allergy eyes [facility] [employer] [facility] Other (1 source) Bee pollen Drug allergy (disorder) [address] [place] [address] Repository (1 source) Penicillin Drug Allergy [address] [place] [address] Repository Medications Current Medications Medication Drug Class(es) [...] conon 08-24-20 CT foot LT wo con [facility] Main [address] [address] [address] Scan Report Signed Patient: Elke Priest MR#: [id number] : 1955 Acct:[id number] Age/Sex: 67 / F ADM Date: 08/24/23 Loc: CT Room: [facility] Attending Dr: Heath Rubin DO Copies to: Heaht Rubin DO Ordering Provider: Heath Rubin DO [...] Panfilo Bird M.D.08/24/2023 4:42 PM Dictation Location: [place] [address] Transcribed By: [facility] 08/24/23 164 Dictated By: Panfilo Bird DO 08/24/23 1604 Signed By: 08/24/23 1642 Normal [facility] US venous duplex LE BIon US venous duplex LE BI [facility] Main [address] [address] Ultrasound Report Signed Patient: Elke Priest MR#: [id number] : 1955 Acct:[id number] Age/Sex: 67 / F ADM Date: 08/22/23 Loc: Room: Type: [facility] CLI Attending Dr: Heath Rubin DO Ordering Provider: [...] Adrian Barlow MD08/23/2023 10:21 AM Dictation Location: [place] [address] Tech: Jane Katelyn Transcribed By: LEIDY 08/23/23 1021 Dictated By: Adrian Barlow MD 08/23/23 1021 Signed By: 08/23/23 1021 Normal [facility] XR foot LT min 3V*on 023 XR foot LT min 3V* [facility] Main [address] [address] XRay Report Signed Patient: Elke Priest MR#: [id number] : 1955 Acct:[id number] Age/Sex: 67 / F ADM Date: 08/21/23 Loc: ER Room: Type: [facility] ER Attending Dr: Copies to: Josue Hernandez APRN Ordering Provider: Josue Hernandez APRN Date of Service: 08/21/23 XR/XR foot LT min 3V*: Fall ([id number]) XR/XR knee LT 4V*: Fall ([id number]) XR/XR ankle LT min 3V*: Fall 4 [...] M.D.08/21/2023 1:38 PM Dictation Location: [place] [address] Transcribed By: [facility] 08/21/23 1338 Dictated By: Panfilo Bird DO 08/21/23 1332 Signed By: 08/21/23 1338 [facility] Vital Signs Date Time Vital Sign Value Performing Clinician Facility 08-22-2023 13:45-0500 Body height 167.64 cm Heath Rubin Other [employer] Other 08-22-2023 13:45-0500 Body mass index (BMI) [Ratio] 20.01 kg/m2 Heath Rubin Other [facility] Other 08-22-2023 13:45-0500 Body weight 56.25 kg Heath Rubin Other [facility] Other 08-21-2023 12:35-0500 Body height 165.1 cm DO Rashard Oberer Work Phone: [facility] 08-21-2023 12:35-0500 Body temperature 98.5 [degF] DO Rashard Oberer Work Phone: [facility] 08-21-2023 12:35-0500 Body weight 56.69 kg DO Rashard Oberer Work Phone: [facility] 08-21-2023 12:35-0500 Diastolic blood pressure 75 mm[Hg] DO Rashard Oberer Work Phone: [facility] 08-21-2023 12:35-0500 Heart rate 94 /min DO Rashard Oberer Work Phone: [facility] 08-21-2023 12:35-0500 Respiratory rate 18 /min DO Rashard Oberer Work Phone: [facility] 08-21-2023 12:35-0500 SaO2% (BldA) [Mass fraction] 98 % DO Rashard Oberer Work Phone: [facility] 08-21-2023 12:35-0500 Systolic blood pressure 133 mm[Hg] DO Rashard Oberer Work Phone: [facility] Encounters Encounter Date Encounter Type Care Provider Facility Start: 08-29-2023 End: 08-29-2023 ambulatory Heath Rubin Other [facility] Other Start: 08-29-2023 Postop follow up vis it related to original px Heath Rubin [facility] Start: 08-24-2023 End: 08-24-2023 ambulatory Heath Rubin Facility:[facility] Start: 08-22-2023 End: 08-22-2023 ambulatory Heath Rubin Facility:[facility] Start: 08-22-2023 End: 08-22-2023 Patient encounter procedure DO Rashard Oberer Work Phone: [facility] [place] Work Phone: Start: 08-22-2023 End: 08-22-2023 ambulatory DO Rashard Oberer Work Phone: [facility] Work Phone: Start: 08-22-2023 FQHC visit new patient Heath Rubin [facility] Start: 08-21-2023 End: 08-21-2023 Emergency department patient visit Josue Hernandez Facility:[facility] Start: 08-21-2023 End: 08-21-2023 Emergency department patient visit DO Rashard Oberer Work Phone: [facility] Work Phone: Procedures Date Procedure [...] limb veins US venous duplex LE BI [facility] Start: 08-22-2023 US Lower extremity v ein - bilateral [facility] Patient Education Heel Fracture (DC) Walking Boot [facility] Work Phone: Patient referral [facility] Work Phone: Immunizations Immunization Date Immunization Notes Care Provider Greg green NEGATED: Highlighted row has not occurred!10-04-2019 influenza, seasonal, injectable Patient Objection Heath Rubin Other [employer] Other NEGATED: Highlighted row has not occurred!09-29-2018 influenza, seasonal, injectable Patient Objection Heath Rubin Other [employer] [facility] Other Payers Date Payer Category Payer Medicare [id number] 2023 Self-pay [id number] 2023 Unknown [id number] Unknown [place] [id number] Unknown [id number] Unknown [id number] Unknown [id number] Social History Date Type Detail Facility Start: 08-21-2023 Tobacco smoking status NHIS Smoker (finding) [facility] Start: 1955 Sex Assigned At Female F [facility] Sex Assigned At Sex Assigned At Bir th [facility] Other Evaluation note 08-29-2023 Note Date & [...] all times and to continue nonweight bearing. [facility] Other Evaluation note 08-22-2023 Note Date & Type Note Facility 08-22-2023 Evaluation note Encounter Date Diagnosis Assessment Notes Jul, Pain of left calf (ICD-10 - M79.662) The patient is experiencing posterior calf pain and swelling. We have to consider possible deep venous thrombosis (DVT). We will have the patient to [facility] and obtain an ultrasound of the [...] to follow up in office after CT [employer] [facility] Other History general Narrative - Reported 11-10-2018 Note Date & Type Note Facility 11-10-2018 History general N arrative - Reported Type Medical History [id number] Surgical History Colonoscopy (+ hemoccult)- poly ps- Dr Rodriguez 11/10/18 [employer] [facility] Other Evaluation note Note Date & Type Note Facility Evaluation note No assessment information availa [facility] Work Phone: Chief Complaint and Reason for Visit Chief Complaint left foot inj Chief Complaint left foot inj Left calf pain Advance Directives No Advanced Directives Records Found Advance Directive Response Recorded Date/ Time Advance Directives No May 1:46pm Reason for Referral Reason Dr. Hernandez Diagnosis 1 Other closed nondisp laced fracture of tuberosity of left calcaneus, initial encounter (S92.045A) Referral Organization [facility] Referring Provider First Name [...] section and content) DATE CREATED AUTHOR 11/04/2023 [facility] FOR RECORDS PERTAINING TO PATIENTS WHO [...] BE BASED ON THE PRIMARY CLINICAL RECORDS. [facility] [employer] [facility]. provides no warranty or guarantee of the accuracy or completeness of information in this document.
== END 2024-03-21 13:10 | disposition home or self-care (01) ==
LOC: EC 13:09
PROVIDERS: Visit Provider Podiatrist Foot & Ankle Surgery
DX: S92.012D Displaced fracture of body of left calcaneus, subsequent encounter for fracture with routine healing (principal)
CPT/HCPCS: 73650

== ENCOUNTER 2024-05-23 13:37 | Outpatient (OUT) | payer MEDICARE, OTHER, SELFPAY ==
--- NOTE | 2024-05-23 | XR_ITS ---
The [address] [address] Patient Name: HÉCTOR PRIEST MRN: [id number] date: 1955 Sex: F Assigned Patient Location: Current Patient Location: Accession/Order Number: [id number] Exam Date: 05/23/2024 13:38 Report Date: 05/24/2024 09:56 At the request of: SANDY TUCKER Procedure: XR calcaneus LT min 2V PROCEDURE: XR calcaneus LT min 2V COMPARISON: 03/21/2024 HISTORY: LEFT CALCANEUS PAIN FINDINGS: BONES:Contour deformity and sclerosis of the mid calcaneus is stable from the prior exam. No acute fracture or dislocation. Mild degenerative changes with marginal osteophyte formation SOFT TISSUES:Negative. No visible soft tissue swelling. EFFUSION:None visible. OTHER: Negative. XR/XR calcaneus LT min 2V IMPRESSION: Stable appearance of the calcaneus, no acute abnormality Electronically authenticated by: INÉS DELGADILLO Date: 05/24/2024 09:56
== END 2024-05-23 13:38 | disposition home or self-care (01) ==
LOC: EC 13:37
PROVIDERS: Visit Provider Podiatrist Foot & Ankle Surgery
DX: M79.672 Pain in left foot (principal)
CPT/HCPCS: 73650

== ENCOUNTER 2025-02-14 10:10 | Outpatient (OUT) | payer MEDICARE, OTHER, SELFPAY ==
--- OUTSIDE RECORDS SUMMARY | 2024-03-21 09:00 | XMS_ITS ---
Author Organization The [facility] in [place] Address [address] [place] [address] Care Team Providers Care Wood Casket Maker Name Role Phone Rashard Flower DO Primary Care Provider Patrick Flannery Unavailable [phone] Allergies Allergen (clinical drug ingredient) Drug/Non Drug Allergy documented on EMR Reaction Allergy Type Onset Date Status bee pollen Bee Pollen Unknown Drug Allergy Activ e Penicillin Unknown Drug Allergy Active Results Component Value Reference Range Notes XR OS Calcis LT Heel (2 view s) * Reviewed date:05/01/2024 09:16:12 AM Interpretation: Performing Lab: Notes/Report: REASON FOR VISIT 7 week f/u Social History Tobacco Use: Social History Observation Description Date Details (start date - stop date) Current Smoker NA - NA Tobacco Use/Smoking Question Answer Notes Patient is a current smoker How often do you smoke cigarettes? every day How many cigarettes a day do you smoke? 11-20 Problems Problem Type SNOMED Code ICD Code Onset Dates Problem Status W/U Status Risk Notes Problem Displaced fracture of body of left calcaneus, subsequent encounter for fracture with routine healing (S92.012D) Active confirmed Vital Signs Temperature 97.6 degrees Fahrenheit 03/21/20 24 Heart Rate 73 /min 03/21/2024 Height 65 in 03/21/2024 Oximetry 99 % 03/21/2024 Encounters Encounter Location Date Provider Diagnosis [facility] (PODIATRY) [address] [place] [address] [place] [address] 03/21/2024 Patrick Larson Displaced fracture of body of left calcaneus, subsequent encounter for fracture with routine healing S92.012D and Heel pain, left M79.672 Assessments Encounter Date Diagnosis (ICD Code) Assessment Notes Treatment Notes Treatment Clinical Notes Section Notes 03/21/2024 Displaced fracture of body of left calcaneus, subsequent encounter for fracture with routine healing (ICD-10 - S92.012D) Patient examined evaluated. All findings discussed with patient and all questions answered to patient's satisfaction.Kimberly t states since previous visit, no significant improvement in pain to the left heel, ambulating in regular shoes and does feel she is progressing well with physical therapy and would like to continue this. Still relying on a walker due to some stiffness in her ankle however she denies any pain today.Clinical exam x-ray finding discussed with patient. Demonstrates interval callus formation no signs signs of other fracture or change in alignment.Will renew physical therapy prescription Discussed vitamin D supplementation and in regards to her bone density. She also states she has never had a DEXA scan and order for this was dispensed today and encouraged her to follow-up with her primary care once has been obtained. Will have her follow-up with us in 2 months to evaluate her progress, she should progress her activity as tolerated.Will get repeat left heel x-rays at next visit. Call with any questions or concerns in the meantime. 03/21/2024 Heel pain, left (ICD-10 - M79.672) Plan Of Treatment Treatment Notes Assessment Notes Displaced fracture of body o f left calcaneus, subsequent encounter for fracture with routine healing Patient examined evaluated. All findings discussed with patient and all questions answered to patient's satisfaction.Patient states since previous visit, no significant improvement in pain to the left heel, ambulating in regular shoes and does feel she is progressing well with physical therapy and would like to continue this. Still relying on a walker due to some stiffness in her ankle however she denies any pain today.Clinical exam x-ray finding discussed with patient. Demonstrates interval callus formation no signs signs of other fracture or change in alignment.Will renew physical therapy prescription Discussed vitamin D supplementation and in regards to her bone density. She also states she has never had a DEXA scan and order for this was dispensed today and encouraged her to follow-up with her primary care once has been obtained. Will have her follow-up with us in 2 months to evaluate her progress, she should progress her activity as tolerated.Will get repeat left heel x-rays at next visit. Call with any questions or concerns in the meantime. Progress Notes * Enid PRIESTOB:1955 (68 yo F)Acc No.[id number]:03/21/2024 Follow Up Patient: Elke FRAZIER Provider: Jyothi Larson DPM :1955 A ge:68 Y S ex:Female Date:03/21/2024 Address:[address] [place], [place] [address], [id number] Pcp:Rashard Flower, DO Check In:01:08 PM ESTCheck O ut:01:36 PM EST Subjective: * Chief Complaints: * 1 . 7 week f/u. * HPI: G eneral: Patient returns to office today for follow up for left displaced calcaneal fracture DOI: 08.14.2023. She denies pain currently. She is walking with normal shoes with assistance of walker. She would like to continue with home care physical therapy and would like to have her handicap placard renewed as well. * ROS: G eneral/Constitutional: Chills d enies. F ever d enies. W eight gain?denies. W eight loss d enies. S kin: Skin Ulcers d enies. S kin lesion(s) d enies. ? C ardiovascular: Difficulty breathing on exertion d enies. L eg cramps?denies. E emily d enies. C hest pain d enies. R espiratory: Difficulty breathing d enies. D yspnea d enies.?Cough d enies. G astrointestinal: Diarrhea d enies. N ausea d enies. V omiting?denies. M usculoskeletal: Bone/Joint Symptoms d enies. C long term Pain d enies.?Leg cramps d enies. N eurologic: Numbness d enies. T ingling d enies . G ait abnormality d enies. ? H ematology: Anemia D enies. E asy bruising d enies. ? A ll Other Systems: Review of Systems (ROS) S ee HPI for details,All others negative except those mentioned in HPI. * Active Problem List G62.012A Displaced fracture o f body of left calcaneus, initial encounter for closed fracture Modified On:4Risk:HighW/U Status:confirmed S90.01XA Contusion of right a nkle, initial encounter Modified On:09/06/2023W/U Status:confirmed T14.8XXD Other injury of unsp ecified body region, subsequent encounter Modified On:09/06/2023/U Status:confirmed M79.672 Left foot pain Modified On:01/03/2024/U Status:confirmed M79.672 Heel pain, left Modified On:03/21/2024W/U Status:confirmed S92.012D Displaced fracture o f body of left calcaneus, subsequent encounter for fracture with routine healing Modified On:03/23/2024/U Status:confirmed * Medical History: L eft calcaneal fracture. * Surgical History: P olyp removed . * Family History: M other: diagnosed with Unspecified essential hypertension, Unspecified heart disease. * Social History: T obacco Use: T obacco Use/Smoking P atient is a c urrent smoker H ow often do you smoke cigarettes? e very day H ow many cigarettes a day do you smoke? 1 1-20 * Medications: N one * Allergies: P enicillin, Bee Pollen. Objective: * Vitals: H t: 65 in, Temp:97.6F, HR:73/min, Pain scale:01-10, Oxygen sat %:99%, Ht-cm: 165.1 cm. * Examination: P odiatry Examination: SKIN: s kin intact, n o sign of infection. MUSCULOSKELETAL: A nkle range of motion decreased in dorsiflexion with knee both flexed and extended. Subtalar range of motion limited to approximately 10 degrees inversion 5 degrees eversion. No palpatory tenderness elicited upon exam. No gross deformity. Compartments soft compressible, no pain with calf or thigh compression.. NEUROLOGICAL: l ight touch sensation intact, n egative tinel's sign. VASCULAR: D P and PT pulses strongly palpable. CFT intact. Skin temperature warm and symmetric without focal increase. No erythema edema or ecchymosis.. X -ray: 2 views of the left heel obtained and reviewed in office today demonstrating interval callus formation across the calcaneal fracture site with no change in overall alignment. Overall decrease in bone density noted with thin cortices.. Assessment: * Assessment: 1. D isplaced fracture of body of left calcaneus, subsequent encounter for fracture with routine healing - S92.012D (Primary) 2 . H eel pain, left - M79.672 Plan: * Treatment: * * Sign off status: Completed Visit Status: C HK (Check Out) true * Provider: Jyothi Larson DPM Date: 0 03/21/2024 Generated for Cheng roman/Lesli/Carlos on: 0 02/14/2025 10:15 AM EDT History and Physical Notes * Examination Category Sub-Category Detail Notes Category Not es Podiatry Examination SKIN: skin intact, no sign of infection X-ray : 2 views of the left heel obtained and reviewed in office today demonstrating interval callus formation across the calcaneal fracture site with no change in overall alignment. Overall decrease in bone density noted with thin cortices.. MUSCULOSKELETAL: Ankle range of motio n decreased in dorsiflexion with knee both flexed and extended. Subtalar range of motion limited to approximately 10 degrees inversion 5 degrees eversion. No palpatory tenderness elicited upon exam. No gross deformity. Compartments soft compressible, no pain with calf or thigh compression. NEUROLOGICAL: light touch sensatio n intact, negative tinel's sign VASCULAR: DP and PT pulses str ongly palpable. CFT intact. Skin temperature warm and symmetric without focal increase. No erythema edema or ecchymosis.
--- OUTSIDE RECORDS SUMMARY | 2024-05-23 09:45 | XMS_ITS ---
Author Organization The [facility] in [place] Address [address] [place] [address] Care Team Providers Care Ship Manager Name Role Phone Rashard Flower DO Primary Care Provider Boston Martin [phone] Allergies Allergen (clinical drug ingredient) Drug/Non Drug Allergy documented on EMR Reaction Allergy Type Onset Date Status bee pollen Bee Pollen Unknown Drug Allergy Activ e Penicillin Unknown Drug Allergy Active Results Component Value Reference Range Notes XR OS Calcis LT Heel (2 view s) * Reviewed date:09/24/2024 12:51:38 PM Interpretation: Performing Lab: Notes/Report: Reason For Referral Diagnosis 1 Age-related osteopor osis without current pathological fracture (M81.0) Referral Organization [facility] (PODIATRY) Referring Provider First Name Boston Referring Provider Last Name Mary Referring Provider Speciality Podiatry Referred Organization [facility] Referred Address [address] [place] [address] Referred Provider Specialty Diagnostic R adiology Referral Priority Routine Diagnosis 1 Displaced fracture o f body of left calcaneus, initial encounter for closed fracture (S92.012A) Referral Organization [facility] (PODIATRY) Referring Provider First Name Boston Referring Provider Last Name Mary Referring Provider [facility] Podiatry Referred Organization [facility] Referred Address [address] [place] [address] Referred Provider Specialty Diagnostic R adiology Referral Priority Routine REASON FOR VISIT 2 month f/u Social History Tobacco Use: Social History Observation Description Date Details (start date - stop date) Current Smoker NA - NA Tobacco Use/Smoking Question Answer Notes Patient is a current smoker How often do you smoke cigarettes? every day How many cigarettes a day do you smoke? - Problems Problem Type SNOMED Code ICD Code Onset Dates Problem Status W/U Status Risk Notes Problem [id number] Age-related osteoporosis without current pathological fracture (M81.0) Active confirmed Vital Signs Temperature 97.8 degrees Fahrenheit 05/23/20 24 Heart Rate 77 /min 05/23/2024 Height 65 in 05/23/2024 Weight 125 lbs 05/23/2024 BMI 20.8 kg/m2 05/23/2024 Oximetry 99 % 05/23/2024 Encounters Encounter Location Date Provider Diagnosis [facility] (PODIATRY) [address] [place] [address] [place] [address] 05/23/2024 Boston Hernandez Displaced fracture of body of left calcaneus, initial encounter for closed fracture S92.012A ; Age-related osteoporosis without current pathological fracture M81.0 and Heel pain, left M79.672 Assessments Encounter Date Diagnosis (ICD Code) Assessment Notes Treatment Notes Treatment Clinical Notes Section Notes 05/23/2024 Displaced fracture of body of left calcaneus, initial encounter for closed fracture (ICD-10 - S92.012A) Patient sustained left calcaneus fracture which was treated nonoperatively in July 2023. She is doing much improved and is not having pain or significant limitation with daily living. I would like her to continue home therapy/home care for continued strengthening and range of motion. She will follow-up in 3 months or as needed with weightbearing calcaneus x-rays. 05/23/2024 Age-related osteoporosis without current pathological fracture (ICD-10 - M81.0) I previously discussed her osteopenic bone quality noted on her x-rays and she would like to undergo DEXA scan which I agreed to order. She may call with the results but if osteopenia or osteoporosis is confirmed on DEXA scan this should be managed by either her primary care physician or her DRIVER GUIDE and she is in full under standing of this. 05/23/2024 Heel pain, left (ICD-10 - M79.672) Plan Of Treatment Treatment Notes Assessment Notes Displaced fracture of body o f left calcaneus, initial encounter for closed fracture Patient sustained left calcaneus fractur e which was treated nonoperatively in July 2023. She is doing much improved and is not having pain or significant limitation with daily living. I would like her to continue home therapy/home care for continued strengthening and range of motion. She will follow-up in 3 months or as needed with weightbearing calcaneus x-rays. Age-related osteoporosis wit hout current pathological fracture I previously discussed her osteopenic [place] ne quality noted on her x-rays and she would like to undergo DEXA scan which I agreed to order. She may call with the results but if osteopenia or osteoporosis is confirmed on DEXA scan this should be managed by either her primary care physician or her DRIVER GUIDE and she is in full under standing of this. Pending Test Test Name Order Date DEXA Axial Skeleton (hips, pelvis, spine )* 05/23/2024 Referrals Referral Date Details 05/23/2024 05/23/2024, [address] [place], [place], 05/23/2024 05/23/2024, [address], [place], Progress Notes * MARTINEMYRAEnidOB:1955 (68 yo F)Acc No.[id number]:05/23/2024 Follow Up Patient: Elke FRAZIER Provider: Gracy Hernandez DPM, MS :1955 A ge:68 Y S ex:Female Date:05/23/2024 Address:[address] [place], [place] [id number] Pcp:Rashard Flower, Check In:01:31 PM ESTCheck O ut:02:08 PM EST Subjective: * Chief Complaints: * 2 month f/u * HPI: G eneral: Patient returns to office today for follow up for left displaced calcaneal fracture DOI: 08.14.2023. She denies pain currently. She is walking with normal shoes with assistance of cane. She would like to continue with home care and physical therapy. She is still seeing progress in therapy. * Active Problem List S92.012A Displaced fracture o f body of left calcaneus, initial encounter for closed fracture Modified On:4Risk:HighW/U Status:confirmed S90.01XA Contusion of right a nkle, initial encounter Modified On:09/06/2023/U Status:confirmed T14.8XXD Other injury of unsp ecified body region, subsequent encounter Modified On:09/06/2023/U Status:confirmed M79.672 Left foot pain Modified On:01/03/2024/U Status:confirmed M79.672 Heel pain, left Modified On:03/21/2024/U Status:confirmed S92.012D Displaced fracture o f body of left calcaneus, subsequent encounter for fracture with routine healing Modified On:03/23/2024/U Status:confirmed M81.0 Age-related osteopor osis without current pathological fracture Modified On:05/23/2024/U Status:confirmed * Medical History: * Surgical History: P olyp removed * Hospitalization/Major Diagno stic Procedure: N o Hospitalization History. * Family History: M other: diagnosed with Unspecified essential hypertension, Unspecified heart disease. * Social History: T obacco Use: T obacco Use/Smoking P atient is a c urrent smoker H ow often do you smoke cigarettes? e very day H ow many cigarettes a day do you smoke? 1 -20 * Medications: N one * Allergies: P enicillinBee Pollenno[Allergies Verified] Objective: * Vitals: W t:125lbs, Ht: 65 in, Temp:97.8F, HR:77/min, BMI:20.8Index, Pain scale:01-10, Oxygen sat %:99%, Ht-cm: 165.1 cm, Wt-k.7 kg. * Examination: P odiatry Examination: SKIN: s kin intact, n o sign of infection. MUSCULOSKELETAL: N o pain on palpation. No significant deformity. Less than 10 degrees range of motion in the frontal plane but is not painful.. NEUROLOGICAL: l ight touch sensation intact, n egative tinel's sign. VASCULAR: P edal pulses palpable, C apillaryrefill is brisk to toe, D igitalhair absent with atrophic skin changes. X -rays: x-rays were obtained & reviewed in my office. There is healed calcaneal body fracture with no significant joint collapse. There is mild collapse of calcaneal height with mild talar dorsiflexion but no anterior ankle impingement noted. Bones appear to be osteopenic. Assessment: * Assessment: 1. D isplaced fracture of body of left calcaneus, initial encounter for closed fracture - S92.012A (Primary), Risk: High 2 . A ge-related osteoporosis without current pathological fracture - M81.0 3 . H eel pain, left - M79.672 Plan: * Treatment: 2. A ge-related osteoporosis without current pathological fracture I maging: DEXA Axial Skeleton (hips, pelvis, spine)* Notes: I previously discussed her osteopenic bone quality noted on her x-rays and she would like to undergo DEXA scan which I agreed to order. She may call with the results but if osteopenia or osteoporosis is confirmed on DEXA scan this should be managed by either her primary care physician or her DRIVER GUIDE and she is in full under standing of this. ? Referral To:Diagnostic Radiology Reason: 3. H eel pain, left I maging: XR OS Calcis LT Heel (2 views) * * Procedure Codes: * * Sign off status: Completed Visit Status: C HK (Check Out) true * Provider: Gracy Hernandez DPM, MS Date: 05/23/2024 Generated for Cheng Rosas/Olyaitting on: 0 02/14/2025 10:14 AM EDT History and Physical Notes * Examination Category Sub-Category Detail Notes Category Not es Podiatry Examination SKIN: skin intact, no sign of infection X-rays: x-rays were obtained & reviewed in my office. There is healed calcaneal body fracture with no significant joint collapse. There is mild collapse of calcaneal height with mild talar dorsiflexion but no anterior ankle impingement noted. Bones appear to be osteopenic MUSCULOSKELETAL: No pain on palpation . No significant deformity. Less than 10 degrees range of motion in the frontal plane but is not painful. NEUROLOGICAL: light touch sensatio n intact, negative tinel's sign VASCULAR: Pedal pulses palpable, Capillary refill is brisk to toe, Digital hair absent with atrophic skin changes Consultation Request Notes Referral Date Referring Provider Referred Provider Not 05/23/2024 Boston Hernandez , 05/23/2024 Boston Hernandez ,
--- OUTSIDE RECORDS SUMMARY | 2024-07-27 08:32 | XMS_ITS ---
Author Organization The [facility] in [place] Address [address] [place] [address] Care Team Providers Care Egg Caser Name Role Phone Rashard Flower DO Primary Care Provider Boston Martin [phone] REASON FOR VISIT DEXA scan Encounters Encounter Location Date Provider Diagnosis [facility] (PODIATRY) [address] [place] [address] [place] [address] 07/27/2024 Boston Hernandez Plan Of Treatment No Information Progress Notes * En[place] PRIESTOB:1955 (68 yo F)Acc No.[id number]:07/27/2024 Patient: Elke FRAZIER :1955 A ge:68 Y S ex:Female Address:[address] [place] [address] * true * Date: Generated for Printi ng/Faxing/eTransmitting on: 0 02/14/2025 10:14 AM EDT
--- OUTSIDE RECORDS SUMMARY | 2025-01-21 11:24 | XMS_ITS ---
Author Name Auto Generated Organization OHIP Care Team Providers Care Vegetable Vendor Name Role Phone LIYA OGDEN Attending Unavailable RASHARD HANNON Primary Care Unavailable Boston Hernandez Admitting Unavailable Boston Hernandez Attending Unavailable Rashard Hannon Primary Care Unavailable Wilfred Cunha Admitting UnavailWilfred Wooten Attending UnavailNelly Mariscal Consulting Unavailable Rashard Hannon Primary Care Unavailable Sirena Pitts Consulting Unavailable Jaskaran Amador Consulting Unavailable Fish Jones Consulting Unavail able Robert Vallejo Consulting Unavailable Jona Sanford Consulting Unavailab Liya Jauregui Consulting Unavailable Shazia Ambriz Consulting Unavailable Eder Diamond Consulting Unavailab Keysha Lee Consulting Unavailable Juli Shetty Consulting Unavailable Oberer, Rashard Primary Care Unavailable Bullimore, Casi E Admitting Unavailable Bullarturoore, Casi E Attending Unavailable Boston Hernandez Attending Unavailable Oberer, Rashard Primary Care Unavailable Boston Hernandez Admitting Unavailable Oberer, Rashard Attending Unavailable Oberer, Rashard Admitting Unavailable Oberer, Rashard Primary Care Unavailable HONG FISH S Referring Unavailable OBERER, RASHARD L Primary Care Unavailable HONG FISH S Referring Unavailable OBERER, RASHARD L Primary Care Unavailable HONG FISH S Referring Unavailable OBERER, RASHARD L Primary Care Unavailable HONG, FISH S Referring Unavailable OBERER, RASHARD L Primary Care Unavailable HONG, FISH S Referring Unavailable OBERER, RASHARD L Primary Care Unavailable PROBLEMS DATE TYPE CONDITION / CODE ATTENDING STATUS [facility] 01/21/2025 Admitting Diagnosis Personal history of nicotine dependence / Z87.891(ICD-10) [place] [facility] 01/21/2025 Admitting Diagnosis Body mass index (BMI) 19.9 or less, adult / Z68.1(ICD-10) [place] [facility] 01/21/2025 Admitting Diagnosis Mixed hyperlipidemia / E78.2(ICD-10) [place] [facility] 01/21/2025 Admitting Diagnosis Cor pulmonale (chronic) / I27.81(ICD-10) [place] [facility] 12/25/2024 Admitting Diagnosis Heart failure, unspecified (Multi) / I50.9(ICD-10) [facility] 12/25/2024 Admitting Diagnosis Non-ST elevation (NSTEMI) myocardial infarction (Multi) / I21.4(ICD-10) [facility] 12/21/2024 Unknown Weakness / R53.1(ICD-10) Oberer, Rashard [facility] 11/27/2024 Unknown Heart failure, unspecified / I50.9(ICD-10) Ruslan Cunhaopher [facility] 11/27/2024 Unknown Acute respirator y failure, unspecified whether with hypoxia or hypercapnia / J96.00(ICD-10) [facility] 11/27/2024 Unknown Non-ST elevation (NSTEMI) myocardial infarction / I21.4(ICD-10) [facility] 11/27/2024 Unknown Other secondary pulmonary hypertension / I27.29(ICD-10) [facility] 11/27/2024 Unknown Right heart fail ure, unspecified / I50.810(ICD-10) [facility] 06/27/2024 Unknown Unspecified frac ture of left calcaneus, subsequent encounter for fracture with routine healing / S92.002D(ICD-10) Boston Hernandez [facility] 06/26/2024 Unknown Age-related osteoporosis without current pathological fracture / M81.0(ICD-10) Boston Hernandez [facility] 05/28/2024 Unknown Unspecified inju ry of unspecified hip, initial encounter / S79.919A(ICD-10) Casi Nuñez [facility] 05/28/2024 Unknown Contusion of lef t hip, initial encounter / S70.02XA(ICD-10) [facility] PROCEDURES No Procedure Records Found RESULTS NUCLEAR STRESS TEST Observed: 12/25/2024 8:25 AM Status: F Source: [facility] Interpreted By: Robert Vallejo and Elias Steele STUDY: MYOCARDIAL PERFUSION STRESS TEST WITH LEXISCAN Performing facility: [facility], [address] [place] [address], [address], [place] [address] [facility] Provider: Alton Pitts DO, FACC PCP: Dr. Nhung Hannon Supervising provider: Jaskaran Amador MD, [facility] INDICATION: Signs/Symptoms:heart failure. ,I50.9 Heart failure, unspecified (Multi),I21.4 Non-ST elevation (NSTEMI) myocardial infarction (Multi HISTORY: Gender: F; Age: 69 y/o ; Height: cm; Weight: kg. Previous CT; Family HX CAD; COPD;emphysema Resp. failure Pulm. HTN Quit smoking 28 days ago. COMPARISON: No comparison. ACCESSION NUMBER(S): [id number] ORDERING CLINICIAN: FISH PITTS TECHNIQUE: ONE DAY protocol. Stress injection: Date:12-25-24, 35.1 mCi of Myoview IV 20 seconds after rapid injection of Lexiscan. Rest injection: Date: 12-25-24, 10.8 mCi of Myoview IV at rest. The patient had a rapid injection of 0.4 mg of Lexiscan IV over 10 seconds. Imaging was performed by gated tomographic technique. Reason for Lexiscan: dizziness/unsteady/fall risk STRESS TEST DATA: Resting heart rate was 57 BPM. Resting blood pressure was 120/64 mmHg. Peak blood pressure was 98/54 mmHg. Peak heart rate was 78 BPM. TEST TERMINATED DUE TO: Protocol completed FINDINGS: STRESS TEST RESULTS: Resting electrocardiogram revealed normal sinus rhythm with right bundle branch block. There were no significant ischemic ECG changes or dysrhythmias. The patient did not have chest pains/symptoms during procedure. There was a normal recovery phase. IMAGING RESULTS: Image quality was good. Rest and stress tomographic images were reviewed and revealed normal perfusion without evidence of ischemia, myocardial infarction, or left ventricular dilatation with stress. Overall left ventricular systolic function appeared to be normal without regional wall motion abnormalities. Ejection fraction was 67%. TID is 1.07 and is normal. There were no evidence of attenuation artifact. IMPRESSION: Normal Lexiscan Myoview cardiac perfusion stress test. No evidence of ischemia or myocardial infarction by perfusion imaging. Normal left ventricular systolic function, ejection fraction 67%. No previous study available for comparison. Signed by: Robert Vallejo 12/26/2024 2:41 PM Dictation workstation: [id number] COMPLETE BLOOD COUNT AUTO DIFF Collected: 12/21/2024 9:40 AM Status: F Source: [facility] TYPE CODE TESTS RESULT OUT OF RANGE REFERENCE UNITS LAB WBC White Blood Count 9.0 Normal 3.8-11.6 10*3/uL LAB UNWBC Uncorrected WBC 9.0 Normal 3.8-11.6 10*3/uL LAB RBC Red Blood Count 5.68 High 3.60-5.00 10*6/u L LAB HGB Hemoglobin 16.8 High 11.8-15.4 g/dL LAB HCT Hematocrit 51.1 High 34.0-46.4 % LAB MCV Mean Corpuscular Volume 90.0 Normal 80-100 fL LAB MCH Mean Corpuscular Hemoglobin 29.7 Normal 24.7-34.3 pg LAB MCHC Mean Corpuscular HGB Conc 33.0 Normal 32.0-35.0 g/dL LAB RDW Red Cell Distribution Width 15.7 High 11.9-15.3 % LAB PLT Platelet Count 352 Normal 150-450 10*3/uL LAB MPV Mean Platelet Volume 8.5 Normal 6.3-10.7 fL LAB NE% Neutrophils % (Auto) 63.0 . % LAB LY% Lymphocytes % (Auto) 24.8 . % LAB MO% Monocytes % (Auto) 10.6 . % LAB EO% Eosinophils % (Auto) 0.6 . % LAB BA% Basophils % (Auto) 1.0 . % LAB NRBC% NRBC% 0.1 Normal 0-0.5 /100{WBC} LAB NE# Neutrophils # (Auto) 5.7 Normal 1.8-7.7 10*3/uL LAB LY# Lymphocytes # (Auto) 2.2 Normal 1.00-4.8 10*3/uL LAB MO# Monocytes # (Auto) 1.0 High 0.0-0.8 10*3/uL LAB EO# Eosinophils # (Auto) 0.1 Normal 0.0-0.45 10*3/uL LAB BA# Basophils # (Auto) 0.1 Normal 0.0-0.2 10*3/uL Result Comment: PERFORMED BY : [facility] [address] [place] [address] PATHOLOGIST [employer] DEPARTMENT CHAIR GOMEZ DRUMMOND M.D. Performed By: #### LIPID, CB C, B12, T4T, FOL, TSH3, BMP, FE, HEPATIC #### [facility] [address] HEPATIC PANEL Collected: 12/21/2024 9:40 AM Status: F Source: [facility] TYPE CODE TESTS RESULT OUT OF RANGE REFERENCE UNITS LAB TP Total Protein 7.0 Normal 6.4-8.9 g/dL LAB ALB Albumin Level 4.6 Normal 3.5-5.7 g/dL LAB GLOB Globulin 2.4 g/dL LAB AGRATIO Albumin/Globulin Ratio 1.9 LAB BILIT Bilirubin,Total 1.1 High 0.3-1.0 mg/dL LAB BILID Bilirubin,Direct 0.20 High 0.03-0.18 mg/dL LAB BILII Bilirubin,Indirect 0.9 mg/dL LAB AST Aspartate Amino Transferase 19 Normal 13-39 U/L LAB ALT Alanine Aminotransferase 18 Normal 7-52 U/L LAB ALP Alkaline Phosphatase 77 Normal 34-104 U/L Performed By: #### LIPID, CB C, B12, T4T, FOL, TSH3, BMP, FE, HEPATIC #### [facility] [address] [place] [id number] [facility] [[email or web address]] BASIC METABOLIC PANEL Collected: 12/21/2024 9:40 AM Status: F Source: [facility] TYPE CODE TESTS RESULT OUT OF RANGE REFERENCE UNITS LAB GLU Glucose 80 Normal 70-100 mg/dL Result Comment: Random Gluco se Reference Range is dependent on time and content of last meal. Glucose of more than 200 mg/dL in a nonstressed, ambulatory subject supports the diagnosis of Diabetes Mellitus. ADA recommended reference range LAB BUN Blood Urea Nitrogen 19 Normal 7-25 mg/dL LAB CREATT Creatinine 0.70 Normal 0.60-1.20 mg/dL LAB GFReNR Estimated GFR >60.0 mL/Min LAB NA Sodium 139 Normal 136-145 mmol/L LAB K Potassium 4.7 Normal 3.5-5.1 mmol/L LAB CL Chloride 99 Normal 98-107 mmol/L LAB CO2 Carbon Dioxide 32.9 High 21.0-31.0 mmol/L LAB GAP Anion Gap 11.8 Normal 6.0-15.0 meq/L LAB CA Calcium 10.3 Normal 8.6-10.3 mg/dL Performed By: #### LIPID, CB C, B12, T4T, FOL, TSH3, BMP, FE, HEPATIC #### [facility] [address] [place] [id number] [facility] [[email or web address]] IRON Collected: 9:40 AM Status: F Source: [facility] TYPE CODE TESTS RESULT OUT OF RANGE REFERENCE UNITS LAB FE Iron 193 Normal 50-212 ug/dL Performed By: #### LIPID, CB C, B12, T4T, FOL, TSH3, BMP, FE, HEPATIC #### [facility] [address] [place] [address] [facility] [[email or web address]] LIPID PANEL Collected: 12/21/2024 9:40 AM Status: F Source: [facility] TYPE CODE TESTS RESULT OUT OF RANGE REFERENCE UNITS LAB CHOL Cholesterol 135 Low 140-200 mg/dL Result Comment: Chol less th an 200 mg/dl low risk Chol 201-239 mg/dl borderline risk Chol 240 mg/dl and greater high risk LAB HDL HDL Cholesterol 46 Normal 23-92 mg/dL Result Comment: HDL CHOL ATP -III CLASSIFICATION Cardiovascular Risk HDL > or equal to 60 mg/dL LOW HDL < 40 mg/dL HIGH LAB TRIG W REF Triglyceride w/Reflex 92 Normal 0-149 mg/dL Result Comment: TRIG ATP III CLASSIFICATION TRIG less than 150 mg/dL Normal TRIG 150-199 mg/dL Borderline high TRIG 200-500 mg/dL High TRIG greater than 500 mg/dL Very high Standard traceable to the Center for Disease Conrtrol and Prevention (CDC) test method. LAB LDLC LDL Cholesterol,Calc ulated 71 Normal 0-100 mg/dL Result Comment: LDL ATP III CLASSIFICATION LDL less than 100 mg/dL Optimal LDL 100-129 mg/dL Near or above optimal LDL 130-159 mg/dL Borderline high LDL 160-189 mg/dL High LDL greater than 189 mg/dL Very high LAB VLDL VLDL CHOLESTEROL 18 mg/dL LAB CHLHDL Chol/HDL Ratio 2.9 <5.0 Performed By: #### LIPID, CB C, B12, T4T, FOL, TSH3, BMP, FE, HEPATIC #### [facility] [address] [place] [address] [facility] [[email or web address]] VITAMIN B12 Collected: 9:40 AM Status: F Source: [facility] TYPE CODE TESTS RESULT OUT OF RANGE REFERENCE UNITS LAB B12 Vitamin B12 330 Normal 180-914 pg/mL Performed By: #### LIPID, CB C, B12, T4T, FOL, TSH3, BMP, FE, HEPATIC #### [facility] [address] [place] [id number] [facility] [[email or web address]] FOLATE Collected: 9:40 AM Status: F Source: [facility] TYPE CODE TESTS RESULT OUT OF RANGE REFERENCE UNITS LAB FOL Folate 19.8 >5.9 ng/mL Result Comment: Folate refer ence range: >5.9 ng/ml The WHO technical consultation on folate and vitamin b12 deficiencies has determined that folate concentrations less than 4 ng/ml are considered deficient. Performed By: #### LIPID, CB C, B12, T4T, FOL, TSH3, BMP, FE, HEPATIC #### [place] [id number] [facility] [[email or web address]] THYROXINE (T4) TOTAL Collected: 12/21/2024 9:40 AM S tatus: F Source: [facility] TYPE CODE TESTS RESULT OUT OF RANGE REFERENCE UNITS LAB T4T Thyroxine (T4) Total 10.26 Normal 5.39-11.82 ug/dL Performed By: #### LIPID, CB C, B12, T4T, FOL, TSH3, BMP, FE, HEPATIC #### [place] [id number] [facility] [[email or web address]] THYROID STIMULATING HORMONE Collected: 12/21/2024 9:4 0 AM Status: F Source: [facility] TYPE CODE TESTS RESULT OUT OF RANGE REFERENCE UNITS LAB TSH3 Thyroid Stimulating Hormone 1.73 Normal 0.45-5.33 u[iU]/mL Result Comment: PERFORMED BY : [place] [address] PATHOLOGIST [employer] DEPARTMENT CHAIR GOMEZ DRUMMOND M.D. Performed By: #### LIPID, CB C, B12, T4T, FOL, TSH3, BMP, FE, HEPATIC #### [place] [id number] [facility] [[email or web address]] ECG 12 LEAD ECG Observed: 11/30/2024 7:58 AM Status: COMPLETED Source: [facility] [address] [place] [id number] Electrocardiograph Report Signed Patient: Elke Priest MR#: [id number] : 1955 Acct:[id number] Age/Sex: 68 / F ADM Date: 11/27/24 Loc: 4N Room: [id number] Type: DIS IN Attending Dr: Wilfred Cunha DO Ordering Provider: Wilfred Cunha DO Date of Service: 11/30/2404/19/500 ECG/ECG 12 lead ECG: Shortness of Breath/Dyspnea Copies to: Test Reason : Blood Pressure : */* mmHG Vent. Rate : 71 BPM Atrial Rate : 71 BPM P-R Int : 144 ms QRS Dur : 82 ms QT Int : 372 ms P-R-T Axes : -9 158 19 degrees QTcB Int : 404 ms Normal sinus rhythm Right ventricular hypertrophy with repolarization abnormality Septal infarct (cited on or before 27-Nov-2024) Possible Inferior infarct , age undetermined Abnormal ECG Confirmed by Nikia Miller ([id number]) on 11/30/2024 9:36:55 PM Referred By: Electronically Signed By: Nikia Miller Transcribed By: MUS Signed By Nikia Miller MD 2135 COMPLETE BLOOD COUNT AUTO DIFF Collected: 11/30/2024 5:19 AM Status: F Source: [facility] TYPE CODE TESTS RESULT OUT OF RANGE REFERENCE UNITS LAB WBC White Blood Count 5.7 Normal 3.8-11.6 10*3/uL LAB UNWBC Uncorrected WBC 5.7 Normal 3.8-11.6 10*3/uL LAB RBC Red Blood Count 4.93 Normal 3.60-5.00 10*6/u L LAB HGB Hemoglobin 14.7 Normal 11.8-15.4 g/dL LAB HCT Hematocrit 45.8 Normal 34.0-46.4 % LAB MCV Mean Corpuscular Volume 92.9 Normal 80-100 fL LAB MCH Mean Corpuscular Hemoglobin 29.8 Normal 24.7-34.3 pg LAB MCHC Mean Corpuscular HGB Conc 32.1 Normal 32.0-35.0 g/dL LAB RDW Red Cell Distribution Width 16.0 High 11.9-15.3 % LAB PLT Platelet Count 189 Normal 150-450 10*3/uL LAB MPV Mean Platelet Volume 8.1 Normal 6.3-10.7 fL LAB NE% Neutrophils % (Auto) 71.8 . % LAB LY% Lymphocytes % (Auto) 14.1 . % LAB MO% Monocytes % (Auto) 12.6 . % LAB EO% Eosinophils % (Auto) 1.0 . % LAB BA% Basophils % (Auto) 0.5 . % LAB NRBC% NRBC% 0.0 Normal 0-0.5 /100{WBC} LAB NE# Neutrophils # (Auto) 4.1 Normal 1.8-7.7 10*3/uL LAB LY# Lymphocytes # (Auto) 0.8 Low 1.00-4.8 10*3/uL LAB MO# Monocytes # (Auto) 0.7 Normal 0.0-0.8 10*3/uL LAB EO# Eosinophils # (Auto) 0.1 Normal 0.0-0.45 10*3/uL LAB BA# Basophils # (Auto) 0.0 Normal 0.0-0.2 10*3/uL Result Comment: PERFORMED BY : [place] [address] PATHOLOGIST [employer] DEPARTMENT CHAIR GOMEZ DRUMMOND M.D. Performed By: #### BMP, CBC #### [address] BASIC METABOLIC PANEL Collected: 11/30/2024 5:19 AM Status: F Source: [facility] TYPE CODE TESTS RESULT OUT OF RANGE REFERENCE UNITS LAB GLU Glucose 142 High 70-100 mg/dL Result Comment: Random Gluco se Reference Range is dependent on time and content of last meal. Glucose of more than 200 mg/dL in a nonstressed, ambulatory subject supports the diagnosis of Diabetes Mellitus. ADA recommended reference range LAB BUN Blood Urea Nitrogen 28 High 7-25 mg/dL LAB CREATT Creatinine 0.53 Low 0.60-1.20 mg/dL LAB GFReNR Estimated GFR >60.0 mL/Min LAB NA Sodium 141 Normal 136-145 mmol/L LAB K Potassium 3.6 Normal 3.5-5.1 mmol/L LAB CL Chloride 90 Low 98-107 mmol/L LAB CO2 Carbon Dioxide >45.0 High 21.0-31.0 mmol/L LAB GAP Anion Gap Test not performed 6.0-15.0 LAB CA Calcium 8.8 Normal 8.6-10.3 mg/dL LAB CRCLPHA Creatinine Clr Calc Pharmacy 59.72 Result Comment: PERFORMED BY : [place] [address] PATHOLOGIST [employer] DEPARTMENT CHAIR GOMEZ DRUMMOND M.D. Performed By: #### BMP, CBC #### [facility] [address] [place] [address] ECG 12 LEAD ECG Observed: 11/29/2024 7:51 AM Status: COMPLETED Source: [facility] [place] [address] Electrocardiograph Report Signed Patient: Elke Priest MR#: [id number] : 1955 Acct:[id number] Age/Sex: 68 / F ADM Date: 11/27/24 Loc: 4N Room: [id number] Type: DIS IN Attending Dr: Wilfred Cunha DO Ordering Provider: Wilfred Cunha DO Date of Service: 11/29/2403/20/500 ECG/ECG 12 lead ECG: Shortness of Breath/Dyspnea Copies to: Test Reason : Blood Pressure : */* mmHG Vent. Rate : 71 BPM Atrial Rate : 71 BPM P-R Int : 142 ms QRS Dur : 84 ms QT Int : 390 ms P-R-T Axes : -14 152 91 degrees QTcB Int : 423 ms Normal sinus rhythm Left posterior fascicular block Septal infarct T wave abnormality, consider anterior ischemia Abnormal ECG Confirmed by Nikia Miller ([id number]) on 11/30/2024 9:16:57 PM Referred By: Electronically Signed By: Nikia Miller Transcribed By: MUS Signed By Nikia Miller MD 2116 COMPLETE BLOOD COUNT AUTO DIFF Collected: 11/29/2024 4:52 AM Status: F Source: [facility] TYPE CODE TESTS RESULT OUT OF RANGE REFERENCE UNITS LAB WBC White Blood Count 6.4 Normal 3.8-11.6 10*3/uL LAB UNWBC Uncorrected WBC 6.4 Normal 3.8-11.6 10*3/uL LAB RBC Red Blood Count 4.89 Normal 3.60-5.00 10*6/u L LAB HGB Hemoglobin 14.8 Normal 11.8-15.4 g/dL LAB HCT Hematocrit 45.5 Normal 34.0-46.4 % LAB MCV Mean Corpuscular Volume 92.9 Normal 80-100 fL LAB MCH Mean Corpuscular Hemoglobin 30.2 Normal 24.7-34.3 pg LAB MCHC Mean Corpuscular HGB Conc 32.5 Normal 32.0-35.0 g/dL LAB RDW Red Cell Distribution Width 16.2 High 11.9-15.3 % LAB PLT Platelet Count 168 Normal 150-450 10*3/uL LAB MPV Mean Platelet Volume 8.2 Normal 6.3-10.7 fL LAB NE% Neutrophils % (Auto) 71.4 . % LAB LY% Lymphocytes % (Auto) 16.2 . % LAB MO% Monocytes % (Auto) 11.2 . % LAB EO% Eosinophils % (Auto) 0.7 . % LAB BA% Basophils % (Auto) 0.5 . % LAB NRBC% NRBC% 0.1 Normal 0-0.5 /100{WBC} LAB NE# Neutrophils # (Auto) 4.6 Normal 1.8-7.7 10*3/uL LAB LY# Lymphocytes # (Auto) 1.0 Normal 1.00-4.8 10*3/uL LAB MO# Monocytes # (Auto) 0.7 Normal 0.0-0.8 10*3/uL LAB EO# Eosinophils # (Auto) 0.0 Normal 0.0-0.45 10*3/uL LAB BA# Basophils # (Auto) 0.0 Normal 0.0-0.2 10*3/uL Result Comment: PERFORMED BY : [place] [address] PATHOLOGIST [employer] DEPARTMENT CHAIR GOMEZ DRUMMOND M.D. Performed By: #### CBC, BMP #### [address] BASIC METABOLIC PANEL Collected: 11/29/2024 4:52 AM Status: F Source: [facility] TYPE CODE TESTS RESULT OUT OF RANGE REFERENCE UNITS LAB GLU Glucose 81 Normal 70-100 mg/dL Result Comment: Random Gluco se Reference Range is dependent on time and content of last meal. Glucose of more than 200 mg/dL in a nonstressed, ambulatory subject supports the diagnosis of Diabetes Mellitus. ADA recommended reference range LAB BUN Blood Urea Nitrogen 26 High 7-25 mg/dL LAB CREATT Creatinine 0.69 Normal 0.60-1.20 mg/dL LAB GFReNR Estimated GFR >60.0 mL/Min LAB NA Sodium 143 Normal 136-145 mmol/L LAB K Potassium 3.8 Normal 3.5-5.1 mmol/L LAB CL Chloride 89 Low 98-107 mmol/L LAB CO2 Carbon Dioxide >45.0 High 21.0-31.0 mmol/L LAB GAP Anion Gap Test not performed 6.0-15.0 LAB CA Calcium 8.7 Normal 8.6-10.3 mg/dL LAB CRCLPHA Creatinine Clr Calc Pharmacy 59.72 Result Comment: PERFORMED BY : [place] [address] PATHOLOGIST [employer] DEPARTMENT CHAIR GOMEZ DRUMMOND M.D. Performed By: #### CBC, BMP #### [address] ECH ECHO TRANSTHORACIC Observed: 025 2:46 PM Status: COMPLETED Source: [facility] [place] [address] Echocardiogram Signed Patient: Elke Priest MR#: [id number] : 1955 Acct:[id number] Age/Sex: 68 / F ADM Date: 11/27/24 Loc: Room: [address] [place] [address] Type: ADM IN Attending Dr: Wilfred Cunha DO Ordering Provider: Wilfred Cunha DO Date of Service: 11/27/2401/18/1722 ECH/ECH echo transthoracic: Shortness of Breath/Dyspnea Copies to: MD Wilfred Perez DO Sandra Gisela PM Patient Location: : 1955 Gender: Female (MM/DD/YYYY) Age: 68 Years Ordering Physician: Wilfred Cunha Height: 64.96 in Weight: 126.753 lb Performed By: Ilana Puga RDCS BSA: 1.63 m2 BP: 105 / 61 mmHg HR: 81 bpm Reason For Study: Shortness of Breath/Dyspnea History: Smoker. + + Interpretation Summary Ejection Fraction = 60-65%. There is septal asymmetric left ventricular hypertrophy. The left ventricular wall motion is normal. Septal bounce is seen. The right ventricle is mildly dilated. The right ventricular systolic function is borderline reduced. The right atrium is moderate to severely dilated. There is mild tricuspid regurgitation. Right ventricular systolic pressure is elevated at 50-60mmHg. There is no comparison study available. Procedure/Quality: A two-dimensional transthoracic echocardiogram with color flow, Doppler and injection of contrast agent Definity was performed. The study was technically good in quality. Left Ventricle: The left ventricular size is normal. There is septal asymmetric left ventricular hypertrophy. Ejection Fraction = 60-65%. Indeterminate diastolic function. The left ventricular wall motion is normal. Septal bounce is seen. Left Atrium: The left atrium appears normal in size. Right Atrium: The right atrium is moderate to severely dilated. Right Ventricle: The right ventricle is mildly dilated. The right ventricular systolic function is borderline reduced. Aortic Valve: The aortic valve is normal in structure. No hemodynamically significant valvular aortic stenosis. No aortic regurgitation is present. Mitral Valve: The mitral valve is normal in structure. No significant mitral valve stenosis. There is no mitral regurgitation noted. Tricuspid Valve: The tricuspid valve is normal in structure. There is mild tricuspid regurgitation. Right ventricular systolic pressure is elevated at 50-60mmHg. Pulmonic Valve: The pulmonic valve is not well visualized. No significant pulmonic regurgitation. Arteries: Borderline aortic root dilatation. Pericardium/Pleura: No pericardial effusion seen. IVC/Hepatic Veins: The inferior vena cava is normal in size, with a normal collapsibility index. MMode/2D Measurements Calculations IVSd (0.7-1.1 cm): 1.40 cm LVIDd (3.7-5.4 cm): 4.0 cm LVPWd (0.7-1.1 cm): 1.10 cm LVIDs (2.3-3.6 cm): 2.6 cm LA dimension (2.3-4.0 cm): 2.7 Ao root diam (2.0-3.2 cm): 3.6 cm cm FS: 35.0 % Ao root area: 10.2 cm2 EDV(Teich): 70.0 ml LVOT diam: 2.00 cm ESV(Teich): 24.6 ml LVOT area: 3.1 cm2 EF(Teich): 64.8 % LAV(MOD-sp2): 20.5 ml LAV(MOD-sp4): 24.4 ml LA A2 area: 10.0 cm2 LA A4 area: 11.2 cm2 LA length (vol): 4.2 cm LA vol: 22.8 ml LA vol index: 14.0 ml/m2 Doppler Measurements Calculations MV E max sheldon: 57.4 cm/sec Ao V2 max: 112.0 cm/sec MV A max sheldon: 75.0 cm/sec Ao max P.0 mmHg MV dec time: 0.22 sec Ao mean P.0 mmHg MV dec slope: 260.0 cm/sec?? Ao V2 mean: 83.4 cm/sec E/E' lat: 8.9 Ao V2 VTI: 19.1 cm E/E' med: 10.6 YAA(I,D): 2.7 cm2 YAA(V,D): 2.8 cm2 TV max P.0 mmHg LV V1 max: 99.0 cm/sec TR max sheldon: 334.0 cm/sec LV V1 max P.9 mmHg TR max P.6 mmHg LV V1 mean: 65.5 cm/sec RAP systole: 8.0 mmHg LV V1 mean P.00 mmHg LV V1 VTI: 16.7 cm + + + + + + + : Electronically : : signed by: Nahum : : : : Meagan : : : : on: 11/28/2024, : : : : 7:46 PM : + + + Transcribed By: SCV Performed At: 11/28/241445 Signed By: Nahum [place] MD 11/28/241945 ECG 12 LEAD ECG Observed: 11/28/2024 8:02 AM Status: COMPLETED Source: [facility] [address] Electrocardiograph Report Signed Patient: Elke Priest MR#: [id number] : 1955 Acct:[id number] Age/Sex: 68 / F ADM Date: 11/27/24 Loc: Room: 2L7262-7 Type: ADM IN Attending Dr: Wilfred Cunha DO Ordering Provider: Wilfred Cunha DO Date of Service: 11/28/2402/17/500 ECG/ECG 12 lead ECG: Shortness of Breath/Dyspnea Copies to: Test Reason : Blood Pressure : */* mmHG Vent. Rate : 75 BPM Atrial Rate : 75 BPM P-R Int : 144 ms QRS Dur : 80 ms QT Int : 360 ms P-R-T Axes : -18 166 16 degrees QTcB Int : 402 ms Normal sinus rhythm Right ventricular hypertrophy Septal infarct (cited on or before 27-Nov-2024) Inferior infarct , age undetermined T wave abnormality, consider anterior ischemia Abnormal ECG When compared with ECG of 27-Nov-2024 17:42, Inferior infarct is now present Nonspecific T wave abnormality now evident in Lateral leads Confirmed by Nahum Rhodes ([id number]) on 11/28/2024 8:00:38 PM Referred By: Electronically Signed By: Nahum Rhodes Transcribed By: MUS Signed By Nahum Rhodes MD 11/28/241999 COMPLETE BLOOD COUNT AUTO DIFF Collected: 11/28/2024 5:46 AM Status: F Source: [facility] TYPE CODE TESTS RESULT OUT OF RANGE REFERENCE UNITS LAB WBC White Blood Count 4.5 Normal 3.8-11.6 10*3/uL LAB UNWBC Uncorrected WBC 4.5 Normal 3.8-11.6 10*3/uL LAB RBC Red Blood Count 5.05 High 3.60-5.00 10*6/u L LAB HGB Hemoglobin 15.0 Normal 11.8-15.4 g/dL LAB HCT Hematocrit 46.8 High 34.0-46.4 % LAB MCV Mean Corpuscular Volume 92.7 Normal 80-100 fL LAB MCH Mean Corpuscular Hemoglobin 29.7 Normal 24.7-34.3 pg LAB MCHC Mean Corpuscular HGB Conc 32.0 Normal 32.0-35.0 g/dL LAB RDW Red Cell Distribution Width 16.4 High 11.9-15.3 % LAB PLT Platelet Count 176 Normal 150-450 10*3/uL LAB MPV Mean Platelet Volume 8.3 Normal 6.3-10.7 fL LAB NE% Neutrophils % (Auto) 82.6 . % LAB LY% Lymphocytes % (Auto) 7.8 . % LAB MO% Monocytes % (Auto) 9.3 . % LAB EO% Eosinophils % (Auto) 0.0 . % LAB BA% Basophils % (Auto) 0.3 . % LAB NRBC% NRBC% 0.1 Normal 0-0.5 /100{WBC} LAB NE# Neutrophils # (Auto) 3.7 Normal 1.8-7.7 10*3/uL LAB LY# Lymphocytes # (Auto) 0.3 Low 1.00-4.8 10*3/uL LAB MO# Monocytes # (Auto) 0.4 Normal 0.0-0.8 10*3/uL LAB EO# Eosinophils # (Auto) 0.0 Normal 0.0-0.45 10*3/uL LAB BA# Basophils # (Auto) 0.0 Normal 0.0-0.2 10*3/uL Result Comment: PERFORMED BY : [place] [address] PATHOLOGIST [employer]IAL [employer] DEPARTMENT CHAIR GOMEZ DRUMMOND M.D. Performed By: #### A1C WTH e A, CBC, [id number], BMP, HS TROP, MG, LIPID #### [facility] [address] [place], [place] [id number] [facility] [[email or web address]] TROPONIN I HIGH SENSITIVITY Collected: 11/28/2024 5:4 6 AM Status: F Source: [facility] TYPE CODE TESTS RESULT OUT OF RANGE REFERENCE UNITS LAB HS TROP Troponin I High Sensitivity 134 High Off Scale 0-15 Result Comment: Critical Res ult : Called to and read back by: KARIN SUÁREZ at: 11/28/2024 07:09:19 by:COMPA The Troponin units of report have been changed to meet the Chest Pain Accreditation requirement, element EC5.M1l2. Troponin units are changed from pg/ml to ng/L. Also, the decimal is removed and results are in whole numbers. PERFORMED BY: [place] [address] PATHOLOGIST [employer]IAL SCI[employer] DEPARTMENT CHAIR GOMEZ DRUMMOND M.D. Performed By: #### A1C WTH e A, CBC, [id number], BMP, HS TROP, MG, LIPID #### [facility] [address] [place], [place] [id number] [facility] [[email or web address]] A1C WITH ESTIMATED AVERAGE GLU Collected: 11/28/2024 5:46 AM Status: F Source: [facility] TYPE CODE TESTS RESULT OUT OF RANGE REFERENCE UNITS LAB .A1C Hemoglobin A1C 5.7 High 4.3-5.6 % Result Comment: Increased ri sk for diabetes: 5.7 - 6.4 diabetes: >6.4 glycemic control for adults with diabetes: <7.0 LAB eAG Estimated Average Glucose 117 mg/dL Result Comment: PERFORMED BY : [place] [address] PATHOLOGIST [employer] DEPARTMENT CHAIR GOMEZ DRUMMOND M.D. Performed By: #### A1C WTH e A, CBC, [id number], BMP, HS TROP, MG, LIPID #### [facility] [address] [place] [address] BASIC METABOLIC PANEL Collected: 11/28/2024 5:46 AM Status: F Source: [facility] Order Comment: FASTING Y TYPE CODE TESTS RESULT OUT OF RANGE REFERENCE UNITS LAB GLU Glucose 170 High 70-100 mg/dL Result Comment: Random Gluco se Reference Range is dependent on time and content of last meal. Glucose of more than 200 mg/dL in a nonstressed, ambulatory subject supports the diagnosis of Diabetes Mellitus. ADA recommended reference range LAB BUN Blood Urea Nitrogen 27 High 7-25 mg/dL LAB CREATT Creatinine 0.74 Normal 0.60-1.20 mg/dL LAB GFReNR Estimated GFR >60.0 mL/Min LAB NA Sodium 144 Normal 136-145 mmol/L LAB K Potassium 4.3 Normal 3.5-5.1 mmol/L LAB CL Chloride 97 Low 98-107 mmol/L LAB CO2 Carbon Dioxide 43.9 High 21.0-31.0 mmol/L LAB GAP Anion Gap 7.4 Normal 6.0-15.0 meq/L LAB CA Calcium 8.5 Low 8.6-10.3 mg/dL LAB CRCLPHA Creatinine Clr Calc Pharmacy 59.72 Performed By: #### A1C WTH e A, CBC, [id number], BMP, HS TROP, MG, LIPID #### [place] [id number] [facility] [[email or web address]] MAGNESIUM Collected: 5:46 AM Status: F Source: [facility] Order Comment: FASTING Y TYPE CODE TESTS RESULT OUT OF RANGE REFERENCE UNITS LAB MG Magnesium 2.0 Normal 1.9-2.7 mg/dL Performed By: #### A1C WTH e A, CBC, [id number], BMP, HS TROP, MG, LIPID #### [address] LIPID PANEL Collected: 11/28/2024 5:46 AM Status: F Source: [facility] Order Comment: FASTING Y TYPE CODE TESTS RESULT OUT OF RANGE REFERENCE UNITS LAB CHOL Cholesterol 127 Low 140-200 mg/dL Result Comment: Chol less th an 200 mg/dl low risk Chol 201-239 mg/dl borderline risk Chol 240 mg/dl and greater high risk LAB HDL HDL Cholesterol 39 Normal 23-92 mg/dL Result Comment: HDL CHOL ATP -III CLASSIFICATION Cardiovascular Risk HDL > or equal to 60 mg/dL LOW HDL < 40 mg/dL HIGH LAB TRIG W REF Triglyceride w/Reflex 54 Normal 0-149 mg/dL Result Comment: TRIG ATP III CLASSIFICATION TRIG less than 150 mg/dL Normal TRIG 150-199 mg/dL Borderline high TRIG 200-500 mg/dL High TRIG greater than 500 mg/dL Very high Standard traceable to the Center for Disease Conrtrol and Prevention (CDC) test method. LAB LDLC LDL Cholesterol,Calc ulated 77 Normal 0-100 mg/dL Result Comment: LDL ATP III CLASSIFICATION LDL less than 100 mg/dL Optimal LDL 100-129 mg/dL Near or above optimal LDL 130-159 mg/dL Borderline high LDL 160-189 mg/dL High LDL greater than 189 mg/dL Very high LAB VLDL VLDL CHOLESTEROL 10 mg/dL LAB CHLHDL Chol/HDL Ratio 3.3 <5.0 Performed By: #### A1C WTH e A, CBC, [id number], BMP, HS TROP, MG, LIPID #### [address] VITAMIN D 25 HYDROXY TOTAL Collected: 11/28/2024 5:46 AM Status: F Source: [facility] Order Comment: FASTING Y TYPE CODE TESTS RESULT OUT OF RANGE REFERENCE UNITS LAB [id number] Vitamin D 25 Hydroxy Total 21.3 Low 30-100 ng/mL Result Comment: VITAMIN D ST ATUS 25(OH)VITAMIN D RANGE (ng/mL) Deficient <20 Insufficient 20 to <30 Sufficient 30 to 100 Reference: Gloria MF,Antonella GARCIA, Emeli SPIVEY, et al. Evaluation,treatment, and prevention of vitamin D deficiency; an Endocrine Society clinical practice guideline. JCEM. 2010; 96(7):1911-30. PERFORMED BY: [place] [address] PATHOLOGIST SOCIAL SCI[employer] DEPARTMENT CHAIR GOMEZ DRUMMOND M.D. Performed By: #### A1C WTH e A, CBC, [id number], BMP, HS TROP, MG, LIPID #### [place] [id number] [facility] [[email or web address]] TROPONIN I HIGH SENSITIVITY Collected: 11/27/2024 7:4 7 PM Status: F Source: [facility] TYPE CODE TESTS RESULT OUT OF RANGE REFERENCE UNITS LAB HS TROP Troponin I High Sensitivity 206 High Off Scale 0-15 Result Comment: Critical Res ult : Called to and read back by: ISAIAH HOFFMAN at: 11/27/2024 20:45:50 by:HARISH The Troponin units of report have been changed to meet the Chest Pain Accreditation requirement, element EC5.M1l2. Troponin units are changed from pg/ml to ng/L. Also, the decimal is removed and results are in whole numbers. PERFORMED BY: [place] [address] PATHOLOGIST [employer]IAL [employer] DEPARTMENT CHAIR GOMEZ DRUMMOND M.D. Performed By: #### HS TROP # ### [place] [id number] [place] CREATINE KINASE Collected: 11/27/2024 5:45 PM Status : F Source: [facility] TYPE CODE TESTS RESULT OUT OF RANGE REFERENCE UNITS LAB CK Creatine Kinase 41 Normal 30-223 U/L Performed By: #### HS TROP, CKMB, CK #### [place] [id number] [facility] [[email or web address]] CREATININE KINASE MB Collected: 5:45 PM Status: F Source: [facility] TYPE CODE TESTS RESULT OUT OF RANGE REFERENCE UNITS LAB CKMBT Creatine Kinase MB 4.7 Normal 0.6-6.3 ng/mL LAB MBI CKMB Relative Index 11.4 High 0.00-2.50 % Performed By: #### HS TROP, CKMB, CK #### [place] [id number] [facility] [[email or web address]] TROPONIN I HIGH SENSITIVITY Collected: 11/27/2024 5:4 5 PM Status: F Source: [facility] TYPE CODE TESTS RESULT OUT OF RANGE REFERENCE UNITS LAB HS TROP Troponin I High Sensitivity 249 High Off Scale 0-15 Result Comment: Critical Res ult : Called to and read back by: DOMINIC DON at: 11/27/2024 18:37:45 by:HARISH The Troponin units of report have been changed to meet the Chest Pain Accreditation requirement, element EC5.M1l2. Troponin units are changed from pg/ml to ng/L. Also, the decimal is removed and results are in whole numbers. PERFORMED BY: [place] [address] PATHOLOGIST SOCIAL SCI[employer] DEPARTMENT CHAIR GOMEZ DURMMOND M.D. Performed By: #### HS TROP, CKMB, CK #### [address] ECG 12 LEAD ECG Observed: 11/27/2024 5:42 PM Status: COMPLETED Source: [facility] [place] [address] Electrocardiograph Report Signed Patient: Elke Priest MR#: [id number] : 1955 Acct:[id number] Age/Sex: 68 / F ADM Date: 11/27/24 Loc: Room: [address] [place] [address] Type: ADM IN Attending Dr: Wilfred Cunha DO Ordering Provider: Oscar Bazan DO Date of Service: 11/27/2401/19/1724 ECG/ECG 12 lead ECG: Shortness of Breath/Dyspnea Copies to: Test Reason : Blood Pressure : 162/84 mmHG Vent. Rate : 89 BPM Atrial Rate : 89 BPM P-R Int : 142 ms QRS Dur : 82 ms QT Int : 354 ms P-R-T Axes : 87 263 56 degrees QTcB Int : 430 ms Normal sinus rhythm Right superior axis deviation Pulmonary disease pattern Right ventricular hypertrophy Septal infarct (cited on or before 27-Nov-2024) Abnormal ECG When compared with ECG of 27-Nov-2024 15:23, (Unconfirmed) No significant change was found Confirmed by OSCAR BAZAN DO ([id number]) on 11/27/2024 8:19:03 PM Referred By: Electronically Signed By: OSCAR BAZAN DO Transcribed By: MUS Signed By Oscar Bazan DO 11/27 XR CHEST 1V PORTABLE Observed: 3:53 PM Status: COMPLETED Source: [facility] Main [place] [id number] XRay Report Signed Patient: Elke Priest MR#: [id number] : 1955 Acct:[id number] Age/Sex: 68 / F ADM Date: 11/27/24 Loc: ER Room: Type: PRE ER Attending Dr: Copies to: Oscar Bazan DO Ordering Provider: Oscar Bazan DO Date of Service: 11/27/24 XR/XR chest 1V portable: Shortness of Breath/Dyspnea SINGLE VIEW CHEST CLINICAL HISTORY: Shortness breath worsening over the past 2 weeks COMPARISON: 03/24/2019 FINDINGS: Enlarged cardiomediastinal silhouette. Perihilar opacities. Right basilar airspace disease and effusion. Elevation right hemidiaphragm. No pneumothorax XR/XR chest 1V portable IMPRESSION: Findings of CHF with superimposed right basilar airspace opacity and effusion. Impression dictated by: Ari Corbin M.D.11/27/2024 3:55 PM Dictation Location: [place] [address] Transcribed By: [facility] 11/27/24 155 Dictated By: Ari Corbin MD 11/27/24 1553 Signed By: <Electronically signed by Ari Corbin MD in OV> 11/27/24 1555 COVID-19 / FLU A/B / RSV PCR Observed: 0 11/27/2024 3:41 PM Status: F Source: [facility] COVID-19 Cepheid Result Negative for SARS-CoV-2 RNA by RT-PCR Flu A Cepheid Result Negative for Flu A RNA by RT-PCR Flu B Cepheid Result Negative for Flu B RNA by RT-PCR RSV Cepheid Result Negative for RSV RNA by RT-PCR COVID19 Blank Space Reference: Negative COVID19 Blank Space Cepheid Disclaimer The Cepheid Xpert Xpress CoV-2/Flu/RSV Plus has Cepheid Disclaimer not been FDA cleared or approved; this test has Cepheid Disclaimer been authorized by FDA under an EUA for use by Cepheid Disclaimer authorized laboratories; this test has been Cepheid Disclaimer authorized only for the simultaneous qualitative Cepheid Disclaimer detection and differentiation of nucleic acids from Cepheid Disclaimer SARS-CoV-2, influenza A, influenza B, and Cepheid Disclaimer respiratory syncytial virus (RSV), and not for any Cepheid Disclaimer other viruses or pathogens; and this test is only Cepheid Disclaimer authorized for the duration of the declaration that Cepheid Disclaimer circumstances exist justifying the authorization of Cepheid Disclaimer emergency use of in vitro diagnostic tests for Cepheid Disclaimer detection and/or diagnosis of COVID-19 under Cepheid Disclaimer Section 564(b)(1) of the Act, 21 U.S.C. 360bbb- Cepheid Disclaimer 3(b)(1), unless the authorization is terminated or Cepheid Disclaimer revoked sooner. PERFORMED BY: [place] [address] PATHOLOGIST SOCIAL SCIENCES DEPARTMENT CHAIR GOMEZ DRUMMOND M.D. Performed By: #### COVID19 F JOSSY RSV, CEPHEID NEG #### [address] CEPHEID COVID PCR NEGATIVE Collected: 0 11/27/2024 3:41 PM Status: F Source: [facility] TYPE CODE TESTS RESULT OUT OF RANGE REFERENCE UNITS LAB CEPHEID NEG Cepheid COVID PCR Negative Negative Negative Result Comment: This is a du plicate Cepheid Xpert Xpress CoV-2/Flu/RSV Plus RNA by RT-PCR result to be used for statistical tracking purpose only. PERFORMED BY: [facility] [address] [place] [address] PATHOLOGIST SOCIAL SCI[employer]ES DEPARTMENT CHAIR GOMEZ DRUMMOND M.D. Performed By: #### COVID19 Ana FENTON RSV, CEPHEID NEG #### [facility] [address] COMPLETE BLOOD COUNT AUTO DIFF Collected: 11/27/2024 3:40 PM Status: F Source: [facility] TYPE CODE TESTS RESULT OUT OF RANGE REFERENCE UNITS LAB WBC White Blood Count 5.9 Normal 3.8-11.6 10*3/uL LAB UNWBC Uncorrected WBC 5.9 Normal 3.8-11.6 10*3/uL LAB RBC Red Blood Count 5.46 High 3.60-5.00 10*6/u L LAB HGB Hemoglobin 16.5 High 11.8-15.4 g/dL LAB HCT Hematocrit 51.3 High 34.0-46.4 % LAB MCV Mean Corpuscular Volume 93.9 Normal 80-100 fL LAB MCH Mean Corpuscular Hemoglobin 30.3 Normal 24.7-34.3 pg LAB MCHC Mean Corpuscular HGB Conc 32.2 Normal 32.0-35.0 g/dL LAB RDW Red Cell Distribution Width 17.0 High 11.9-15.3 % LAB PLT Platelet Count 179 Normal 150-450 10*3/uL LAB MPV Mean Platelet Volume 8.5 Normal 6.3-10.7 fL LAB MDW Monocyte Distribution Width 17.15 Normal 0.00-20.00 % LAB NE% Neutrophils % (Auto) 73.3 . % LAB LY% Lymphocytes % (Auto) 16.1 . % LAB MO% Monocytes % (Auto) 9.4 . % LAB EO% Eosinophils % (Auto) 0.3 . % LAB BA% Basophils % (Auto) 0.9 . % LAB NRBC% NRBC% 0.1 Normal 0-0.5 /100{WBC } LAB NE# Neutrophils # (Auto) 4.3 Normal 1.8-7.7 10*3/uL LAB LY# Lymphocytes # (Auto) 0.9 Low 1.00-4.8 10*3/uL LAB MO# Monocytes # (Auto) 0.6 Normal 0.0-0.8 10*3/uL LAB EO# Eosinophils # (Auto) 0.0 Normal 0.0-0.45 10*3/uL LAB BA# Basophils # (Auto) 0.1 Normal 0.0-0.2 10*3/uL Result Comment: PERFORMED BY : [facility] [address] [place] [id number] PATHOLOGIST SOCIAL [employer] DEPARTMENT CHAIR GOMEZ DRUMMOND M.D. Performed By: #### CK, HS TR OP, PTT, CMP, CBC, PT, BNP #### [facility] [address] [place] [id number] [facility] [[email or web address]] COMPREHENSIVE METABOLIC PANEL Collected: 11/27/2024 3 :40 PM Status: F Source: [facility] TYPE CODE TESTS RESULT OUT OF RANGE REFERENCE UNITS LAB GLU Glucose 105 High 70-100 mg/dL Result Comment: Random Gluco se Reference Range is dependent on time and content of last meal. Glucose of more than 200 mg/dL in a nonstressed, ambulatory subject supports the diagnosis of Diabetes Mellitus. ADA recommended reference range LAB BUN Blood Urea Nitrogen 24 Normal 7-25 mg/d L LAB CREATT Creatinine 0.60 Normal 0.60-1.20 mg/dL LAB GFReNR Estimated GFR >60.0 mL/Min LAB NA Sodium 141 Normal 136-145 mmol/L LAB K Potassium 4.4 Normal 3.5-5.1 mmol/L LAB CL Chloride 97 Low 98-107 mmol/L LAB CO2 Carbon Dioxide 40.0 High 21.0-31.0 mmol/L LAB GAP Anion Gap 8.4 Normal 6.0-15.0 meq/L LAB CA Calcium 9.1 Normal 8.6-10.3 mg/dL LAB TP Total Protein 6.5 Normal 6.4-8.9 g/dL LAB ALB Albumin Level 4.1 Normal 3.5-5.7 g/dL LAB GLOB Globulin 2.4 g/dL LAB AGRATIO Albumin/Globulin Ratio 1.7 LAB BILIT Bilirubin,Total 0.9 Normal 0.3-1.0 mg/dL LAB AST Aspartate Amino Transferase 18 Normal 13-39 U/L LAB ALT Alanine Aminotransferase 12 Normal 7-52 U/L LAB ALP Alkaline Phosphatase 50 Normal 34-104 U/L LAB CRCLPHA Creatinine Clr C alc Pharmacy 59.41 Result Comment: PERFORMED BY : [place] [address] PATHOLOGIST SOCIAL SCI[employer] DEPARTMENT CHAIR GOMEZ DRUMMOND M.D. Performed By: #### CK, HS TR OP, PTT, CMP, CBC, PT, BNP #### [address] B-TYPE NATRIURETIC PEPTIDE Collected: 11/27/2024 3:40 PM Status: F Source: [facility] TYPE CODE TESTS RESULT OUT OF RANGE REFERENCE UNITS LAB BNP B-Type Natriuretic Peptide 1570.0 High 5-100 pg/mL Result Comment: PERFORMED BY : [place] [address] PATHOLOGIST SOCIAL SCI[employer] DEPARTMENT CHAIR GOMEZ DRUMMOND M.D. Performed By: #### CK, HS TR OP, PTT, CMP, CBC, PT, BNP #### [address] PROTHROMBIN TIME INR Collected: 11/27/2024 3:40 PM S tatus: F Source: [facility] TYPE CODE TESTS RESULT OUT OF RANGE REFERENCE UNITS LAB R PT Prothrombin Time 13.0 High 9.0-12.9 s Result Comment: A hematocrit value greater than 55% may lead to inaccurate results in coagulation testing. Patients having hematocrit values >55% require a special collection tube for coagulation studies. Please contact the laboratory at [phone] for redraw instructions. LAB INR INR 1.1 Result Comment: INR Therapeu tic Range A) Pre- and Peroperative OAT started two weeks before surgery. NOT HIP SURGERY: 1.5 - 2.5 HIP SURGERY: 2 - 3 B) Primary and secondary prevention of venous THROMBOSIS: 2 - 3 C) Active venous thrombosis, pulmonary embolism and prevention of recurrent venous thrombosis: 2 - 3 D) Prevention of arterial thromboembolism including patients with mechanical heart valves: 3 - 4.5 Performed By: #### CK, HS TR OP, PTT, CMP, CBC, PT, BNP #### [address] PARTIAL THROMBOPLASTIN TIME Collected: 11/27/2024 3:4 0 PM Status: F Source: [facility] TYPE CODE TESTS RESULT OUT OF RANGE REFERENCE UNITS LAB PTT Partial Thromboplastin Time 30.0 Normal 25.1-36.5 s Result Comment: A hematocrit value greater than 55% may lead to inaccurate results in coagulation testing. Patients having hematocrit values >55% require a special collection tube for coagulation studies. Please contact the laboratory at [phone] for redraw instructions. PERFORMED BY: [address] [address] PATHOLOGIST SOCIAL SCIENCES DEPARTMENT CHAIR GOMEZ DRUMMOND M.D. Performed By: #### CK, HS TR OP, PTT, CMP, CBC, PT, BNP #### [place] [id number] [facility] [[email or web address]] CREATINE KINASE Collected: 11/27/2024 3:40 PM Status : F Source: [facility] TYPE CODE TESTS RESULT OUT OF RANGE REFERENCE UNITS LAB CK Creatine Kinase 43 Normal 30-223 U/L Performed By: #### CK, HS TR OP, PTT, CMP, CBC, PT, BNP #### [place] [id number] [facility] [[email or web address]] TROPONIN I HIGH SENSITIVITY Collected: 11/27/2024 3:4 0 PM Status: F Source: [facility] TYPE CODE TESTS RESULT OUT OF RANGE REFERENCE UNITS LAB HS TROP Troponin I High Sensitivity 238 High Off Scale 0-15 Result Comment: Critical Res ult : Called to and read back by: DINO LUZ at: 11/27/2024 17:06:11 by:[facility] The Troponin units of report have been changed to meet the Chest Pain Accreditation requirement, element EC5.M1l2. Troponin units are changed from pg/ml to ng/L. Also, the decimal is removed and results are in whole numbers. PERFORMED BY: [address] [address] PATHOLOGIST SOCIAL [employer] DEPARTMENT CHAIR GOMEZ DRUMMOND M.D. Performed By: #### CK, HS TR OP, PTT, CMP, CBC, PT, BNP #### [address] [address] [facility] [[email or web address]] ECG 12 LEAD ECG Observed: 11/27/2024 3:23 PM Status: COMPLETED Source: [facility] [address] [address] Electrocardiograph Report Signed Patient: Elke Priest MR#: [id number] : 1955 Acct:[id number] Age/Sex: 68 / F ADM Date: 11/27/24 Loc: Room: [address] [place] [address] Type: ADM IN Attending Dr: Wilfred Cunha DO Ordering Provider: Oscar Bazan DO Date of Service: 11/27/2401/18/1519 ECG/ECG 12 lead ECG: Shortness of Breath/Dyspnea Copies to: Test Reason : Blood Pressure : 168/100 mmHG Vent. Rate : 96 BPM Atrial Rate : 96 BPM P-R Int : 142 ms QRS Dur : 82 ms QT Int : 334 ms P-R-T Axes : 75 -86 56 degrees QTcB Int : 421 ms Poor data quality, interpretation may be adversely affected Normal sinus rhythm Left axis deviation Septal infarct , age undetermined Abnormal ECG No previous ECGs available Confirmed by OSCAR BAZAN DO ([id number]) on 11/27/2024 8:19:04 PM Referred By: Electronically Signed By: OSCAR BAZAN DO Transcribed By: MUS Signed By Oscar Bazan DO 11/27 2019 XR FEMUR LT 2V* Observed: 05/28/2024 1:22 PM Status: COMPLETED Source: [facility] [place] [id number] XRay Report Signed Patient: Elke Priest MR#: [id number] : 1955 Acct:[id number] Age/Sex: 68 / F ADM Date: 05/28/24 Loc: ER Room: Type: [facility] ER Attending Dr: Copies to: ALMA Donahue Ordering Provider: ALMA Donahue Date of Service: 05/28/24 XR/XR pelvis 1-2V: Extremity Injury, Lower ([id number]) XR/XR femur LT 2V*: Extremity Injury, Lower CLINICAL DATA: Left lateral hip and groin pain since fall last night. AP PELVIS: COMPARISON: None Evaluation is slightly limited by the bowel gas and stool overlying the pelvis. There is also osteopenia. No obvious acute fracture, dislocation or bony destruction is seen. The hip joint spaces are symmetric. There is no significant arthritic change. There is a chronic-appearing bony ossicle/soft tissue calcification adjacent to the greater trochanter on the left laterally. The SI joints, as visualized are intact. There is minor scoliotic curvature and degenerative change at the lower imaged lumbar spine. There are no soft tissue abnormalities. XR/XR pelvis 1-2V IMPRESSION: NO OBVIOUS ACUTE BONY FINDINGS WITHIN LIMITS OF OSTEOPENIA AND OVERLYING BOWEL GAS AND STOOL. LEFT FEMUR - 2 views COMPARISON: None There is osteopenia. No definite acute fractures or dislocation are identified. A chronic- appearing calcification/bony ossicle is seen near the greater tuberosity. There is no prominent degenerative change at the hip or knee. No soft tissue swelling is seen. IMPRESSION: OSTEOPENIA. NO ACUTE BONY FINDINGS. Impression dictated by: Mary Granados M.D.05/28/2024 1:26 PM Dictation Location: [place] [address] Transcribed By: [facility] 05/28/24 1326 Dictated By: Mary Granados MD 05/28/24 1322 Signed By: <Electronically signed by MD Mary Granados in OV> 05/28/24 1326 ALLERGIES DATE TYPE / CODE NAME / CODE REACTION SEVERITY SOURCE 12/04/2024 Drug Allergy/44003 8002(SNOMED CT) Penicillins/X05624 0476(RXNORM) Anaphylaxis Unknown [facility] 12/04/2024 Drug Allergy/68818 8002(SNOMED CT) penicillin G/[id number](RXNOR M) eyes swell, SOB [facility] 12/04/2024 Drug Allergy/10690 8002(SNOMED CT) bee pollen/[id number]( RXNORM) eyes swell, SOB Unknown [facility] SYSTEMIC/4201 55633(SNOMED CT) NO KNOWN ALLERGIES [facility] ENCOUNTERS ADMIT/DISCHARGE ACCOUNT NUMBER ADMITTING ENCOUNTER CLASS LOCATION SOURCE 01/21/2025/01/22/20 25 [id number] Ambulatory Building:[facility] [id number] [facility] 12/25/2024/12/26/19 [id number] Ambulatory Building:[address] 12/25/2024/12/26/19 [id number] Ambulatory Building:[address] 12/25/2024/12/26/19 [id number] Ambulatory Building:[address] 12/25/2024/12/26/19 [id number] Ambulatory Building:[address] 12/25/2024/12/26/19 [id number] Ambulatory Building:[address] 12/21/2024/12/22/19 [id number] [facility] ng:[facility] 11/27/2024/12/01/19 25 [id number] Wilfred Cunha Inpatient Encounter [facility] nNRoom: [id number]: [address] [facility] 06/27/2024/06/27/20 24 [id number] [facility] ng:PTBONECRK [facility] 06/26/2024/06/26/20 24 [id number] [facility] ng:[facility] 05/28/2024/05/28/20 24 [id number] Casi Nuñez Emergency [facility] ng:EDFTRoom: [facility] PAYERS ENCOUNTER GUARANTOR PAYER SUBSCRIBER SOURCE 01/21/2025 ELKE SAUCEDO: [id number] D[place] NOEL [address]Oui: (HP) Primary Insurance:MEDICAREPo licy Number: [id number] Date:2019-11-25 ELKE SAUCEDO: [id number] DORON NOEL [address]Qra: (HP) [facility] 01/21/2025 Secondary Insurance:MUTUAL OF OMAPolicy Number: [id number] Date:2019-11-25 ELKE FARLEYERDOB: [id number] [place], [place] [address]Wxc: (HP) [facility] 12/25/2024 ELKE BOEJESSICAERDOB: [id number] [place], [place] [address]Jhp: (HP) Primary Insurance:MEDICAREPo licy Number: [id number] Date:2019-11-25 ELKE BOEPRESTONCOMPAERDOB: [id number] [place] [place], [place] [address]Esf: () [facility] 12/25/2024 Secondary Insurance:MUTUAL OF OMAPolicy Number: [id number] Date:2019-11-25 ELKERA FARLEYERDOB: [id number] [place] [place], [place] [address]Eur: () [facility] 12/25/2024 ELKE MARTINEERDOB: [id number] [place], [place] [address]Gew: () Primary Insurance:MEDICAREPo licy Number: [id number] Date:2019-11-25 ELKE BOEPRESTONCOMPAERDOB: [id number] [place], [place] [address]Nzm: () [facility] 12/25/2024 Secondary Insurance:MUTUAL OF OMAPolicy Number: [id number] Date:2019-11-25 ELKERA FARLEYERDOB: [id number] [place] [place], [place] [address]Zuo: () [facility] 12/25/2024 ELKE FARLEYERDOB: [place] [address]Cnd: () Primary Insurance:MEDICAREPo licy Number: [id number] Date:2019-11-25 ELKE FARLEYERDOB: [id number] [place] [address]Tyy: (HP) [facility] 12/25/2024 Secondary Insurance:MUTUAL OF OMAHAPolicy Number: [id number] Date:2019-11-25 ELKERA SORENSONICHERDOB: [id number] [place] [address]Xul: () [facility] 12/25/2024 ELKE BOEJESSICAERDOB: [place] [address]Rtc: () Primary Insurance:MEDICAREPo licy Number: [id number] Date:2019-11-25 ELKE MARTINEERDOB: [id number] [place] [address]Moe: () [facility] 12/25/2024 Secondary Insurance:MUTUAL OF OMAHAPolicy Number: [id number] Date:2019-11-25 ELKE BOEPRESTONCOMPAERDOB: [id number] [place] [place], [place] [address]Lsi: () [facility] 12/25/2024 ELKE MARTINEERDOB: [place], [place] [address]Qaw: () Primary Insurance:MEDICAREPo licy Number: [id number] Date:2019-11-25 ELKERA SORENSONICHERDOB: [id number] [place] [address]Ldy: () [facility] 12/25/2024 Secondary Insurance:MUTUAL OF OMAHAPolicy Number: [id number] Date:2019-11-25 ELKE PRIESTDOB: [id number] [place] [place], [place] [address]Adb: (HP) [facility] 12/21/2024 Elke Farleyer[address] [place] [address]Min: (HP) Primary Insurance:MedicarePo licy Number: [id number] Date:2024-12-05 Elke PriestDOB: [id number] [place] [address]Xwy: (HP) [facility] 12/21/2024 Secondary Insurance:[employer] of OmahaPolicy Number: [id number] Date:2024-12-05 Elke PriestDOB: [id number] [place] [address]Ptf: (HP) [facility] 12/21/2024 Tertiary Insurance:Self PayPolicy Number: Effective Date:2024 [facility] 11/27/2024 Elke Priest[address] [place] [address]Ybj: (HP) Primary Insurance:MedicarePo licy Number: [id number] Date:2024-11-27 Elke GallegosB: [id number] [place] [address]Izp: (HP) [facility] 11/27/2024 Secondary Insurance:[employer] of OmahaPolicy Number: [id number] Date:2024-11-27 Elke PriestDOB: [id number] [place] [address]Tql: (HP) [facility] 11/27/2024 Tertiary Insurance:Self PayPolicy Number: Effective Date:2024-11-27 [facility]EN[facility] 06/27/2024 Elke Farleyer[address] [place] [address]Sib: (HP) Primary Insurance:MedicarePo licy Number: [id number] Date:2024-04-06 Elke FarleyerDOB: [id number] [place] [address]Crs: (HP) [facility] 06/27/2024 Secondary Insurance:[employer] of OmahaPolicy Number: [id number] Date:2024-04-06 Elke PriestDOB: [id number] [place] [address]Wxe: (HP) [facility] 06/27/2024 Tertiary Insurance:Self PayPolicy Number: Effective Date:2024-04-06 [facility]EN[facility] 06/26/2024 Elke Farleyer[address] [place] [address]Mqx: (HP) Primary Insurance:MedicarePo licy Number: [id number] Date:2024-05-24 Elke PrietsDOB: [id number] [place] [address]Ncv: (HP) [facility] 06/26/2024 Secondary Insurance:[employer] of OmahaPolicy Number: [id number] Date:2024-05-24 Elke FarleyerDOB: [id number] [place] [address]Len: (HP) [facility] 06/26/2024 Tertiary Insurance:Self PayPolicy Number: Effective Date:2024-05-25 [facility]ENThe [facility] 05/28/2024 Elke Farleyer[address] [place] [address]Gmw: (HP) Primary Insurance:MedicarePo licy Number: [id number] Date:2024-05-28 Elke Saucedo: [id number] [place] [address]Qmg: () [facility] 05/28/2024 Secondary Insurance[facility] Hospital[facility]Policy Number: [id number] Date:2024-05-28 Elke Saucedo: [id number] [place] [address]Jye: () [facility] 05/28/2024 Tertiary Insurance:Self PayPolicy Number: Effective Date:2024-05-28 NOT [facility]ENThe [facility]
--- OUTSIDE RECORDS SUMMARY | 2025-02-14 10:15 | XMS_ITS | Encounter Summary ---
Author Organization [facility] Address [address] [place] [address] Phone Care Team Providers Care Concrete Smoother Name Role Phone Rashard Flower DO Primary Care Provider [phone] Encounter Details Date Type Department Care Team (Late st Contact Info) Description 12/21/2024 Scanned Document [facility] [address] [place] [address] Scanning, Generic Provider Social History Tobacco Use Types Packs/Day Years Used Date Smoking Tobacco: Never Assessed Comments Unknown Sex and Gender Information Value Date Recorded Sex Assigned at Not on file Legal Sex Female 9:14 AM EST Gender Identity Not on file Sexual Orientation Not on file documented as of this encounter Plan of Treatment Upcoming Encounters Date Type Department Care Team (Late st Contact Info) Description 10/30/2025 11:30 AM EST Office Visit [facility] [address] [facility] [address] [place] [address] Shen Patten DO [address] [facility] [address] [place] [place] [address] documented as of this encounter Visit Diagnoses Not on filedocumented in this encounter Care Teams Concrete Smoother Relationship Specialty Start Date End Date Rashard Flower DO [address] [facility] [place] [address] PCP - General Family Medicine 11/29/24 documented as of this encounter
--- OUTSIDE RECORDS SUMMARY | 2025-02-14 10:15 | XMS_ITS | Encounter Summary ---
Author Organization [facility] Address [address] [place] [address] Phone Care Team Providers Care Lens Coater Name Role Phone Rashard Flower DO Primary Care Provider [phone] Encounter Details Date Type Department Care Team (Late st Contact Info) Description 11/30/2024 Scanned Document [facility] [address] [place] [address] Scanning, Generic Provider Social History Tobacco Use [...] Description 10/30/2025 11:30 AM EST Office Visit [facility] [address] [facility] [address] [place] [address] Shen Patten DO [address]03 [facility] [address], [address] [place] [address] documented as of this encounter Visit Diagnoses Not on filedocumented in this encounter Care Teams Lens Coater Relationship Specialty Start Date End Date Rashard Flower DO [address] [facility] [place] [address] PCP - General Family Medicine 11/29/24 documented as of this encounter
--- OUTSIDE RECORDS SUMMARY | 2025-02-14 10:15 | XMS_ITS | Patient Health Record ---
Author Organization [facility] [place] Address [address] [place] [address] Care Team Providers Care Clinical Practitioner Name Role Phone Rashard Flower DO Primary Care Provider Sandy Martin Unavailable [phone] Patrick Larson Unavailable [phone] Allergies Allergen (clinical drug ingredient) Drug/Non Drug Allergy documented on EMR Reaction Allergy Type Onset Date Status bee pollen Bee Pollen Unknown Drug Allergy Activ e Penicillin Unknown Drug Allergy Active Results Component Value Reference Range Notes XR OS Calcis LT Heel (2 view s) * Reviewed date:05/01/2024 09:16:12 AM Interpretation: Performing Lab: Notes/Report: XR OS Calcis LT Heel (2 view s) * Reviewed date:09/24/2024 12:51:38 PM Interpretation: Performing Lab: Notes/Report: XR calcaneus LT min 2V (Not yet reviewed by provider) Interpretation: Performing Lab: Notes/Report: Source Facility: [place] [address] [place] [address] XRay Report Signed Patient: ELKE PRIEST MR#: [id number] : 1955 Acct:[id number] Age/Sex: 68 / F ADM Date: 05/23/24 Loc: EC Attending Dr: Sandy Hernandez D.P.M. Ordering Physician: Sandy Hernandez D.P.M. Date of Service: 05/23/24 Procedure(s): XR calcaneus LT min 2V Accession Number(s): [id number] cc: Sandy Hernandez D.P.M.; Physician,Non-Staff Ean The [address] [address] Patient Name: ELKE PREIST MRN: [id number] date: 1955 Sex: F Assigned Patient Location: Current Patient Location: Accession/Order Number: [id number] Exam Date: 05/23/2024 13:38 Report Date: 05/24/2024 09:56 At the request of: SANDY HERNANDEZ Procedure: XR calcaneus LT min 2V PROCEDURE: XR calcaneus LT min 2V COMPARISON: 03/21/2024 HISTORY: LEFT CALCANEUS PAIN FINDINGS: BONES:Contour deformity and sclerosis of the mid calcaneus is stable from the prior exam. No acute fracture or dislocation. Mild degenerative changes with marginal osteophyte formation SOFT TISSUES:Negative. No visible soft tissue swelling. EFFUSION:None visible. OTHER: Negative. XR/XR calcaneus LT min 2V IMPRESSION: Stable appearance of the calcaneus, no acute abnormality Electronically authenticated by: INÉS DELGADILLO Date: 05/24/2024 09:56 Dictated By: Inés Delgadillo M.D. Signed By: 05/24/24957 DD/ 5 TD/TT: Cnc Operator Machinist: [place] [address] XRay Report Signed Patient: ELKE PRIEST MR#: [id number] : 1955 Acct:[id number] Age/Sex: 68 / F ADM Date: 05/23/24 Loc: EC Attending Dr: Sandy Hernandez D.P.M. Ordering Physician: Sandy Hernandez D.P.M. Date of Service: 05/23/24 Procedure(s): XR lance caneus LT min 2V Accession Number(s): [id number] cc: Sandy Hernandez D.P.M.; Physician,Non-Staff Ean [facility] [address] [address] Patient Name: ELKE PRIEST MRN: [id number] date: 1955 Sex: F Assigned Patient Location: Current Patient Location: Accession/Order Numb er: [id number] Exam Date: 05/23/2024 13:38 Report Date: 05/24/2024 09:56 At the request of: SANDY HERNANDEZ Procedure: XR calcan eus LT min 2V PROCEDURE: XR calcan eus LT min 2V COMPARISON: 03/21/2024 HISTORY: LEFT CALCANEUS PAIN FINDINGS: BONES:Contour deform ity and sclerosis of the mid calcaneus is stable from the prior exam. No acute fracture or dislocation. Mild degenerative changes with marginal osteophyte formation SOFT TISSUES:Negativ e. No visible soft tissue swelling. EFFUSION:None visible. OTHER: Negative. X R/XR calcaneus LT min 2V IMPRESSION: Stable appearance of the calcaneus, no acute abnormality Electronically authe nticated by: INÉS DELGADILLO Date: 05/24/2024 09:56 Dictated By: Inés Delgadillo M.D. Signed By: 05/24/24 0958 DD/ TD/TT: Cnc Operator Machinist: Reason For Referral Diagnosis 1 Age-related osteopor osis without current pathological fracture (M81.0) Referral Organization [facility] Referring Provider First Name Sandy Referring Provider [facility] Referring Provider Speciality Podiatry Referred Organization [facility] Referred Address [address] [place] [address] Referred Provider Specialty Diagnostic R adiology Referral Priority Routine Diagnosis 1 Displaced fracture o f body of left calcaneus, initial encounter for closed fracture (S92.012A) Referral Organization [facility] ([facility]) Referring Provider First Name Sandy Referring Provider Last Name [facility] Referring Provider Speciality Podiatry Referred Organization [facility] Referred Address [address] [place] [address] Referred Provider Specialty Diagnostic R adiology Referral Priority Routine Social History Tobacco Use: Social History Observation Description Date Details (start date - stop date) Current Smoker NA - NA Tobacco Use/Smoking Question Answer Notes Patient is a current smoker How often do you smoke cigarettes? every day How many cigarettes a day do you smoke? 11-20 Problems Problem Type SNOMED Code ICD Code Onset Dates Problem Status W/U Status Risk Notes Problem 431880494 Age-related osteoporosis without current pathological fracture (M81.0) Active confirmed Problem 61160460066361333 Contusion of right ankle, initial encounter (S90.01XA) Active confirmed Problem 80903197 Displaced fracture of body of left calcaneus, initial encounter for closed fracture (S92.012A) Active confirmed High Problem Displaced fracture of body of left calcaneus, subsequent encounter for fracture with routine healing (S92.012D) Active confirmed Problem Pain in left foot (828561317286271) Left foot pain (M79.672) Active confirmed Problem Pain in limb (99252879) Heel pain, left (M79.672) Active confirmed Problem 30692884151239587 Other injury o f unspecified body region, subsequent encounter (T14.8XXD) Active confirmed Vital Signs Heart Rate 77 /min 05/23/2024 Temperature 97.8 degrees Fahrenheit 05/23/2024 Oximetry 99 % 05/23/2024 Height 65 in 05/23/2024 Weight 125 lbs 05/23/2024 BMI 20.8 kg/m2 05/23/2024 Encounters Encounter Location Date Provider Diagnosis [facility] [address] [place] [address] [place] [address] 07/27/2024 Sandy Hernandez [facility] [address] [place] [address] [place] [address] 03/21/2024 Patrick Romoil Displaced fracture of body of left calcaneus, subsequent encounter for fracture with routine healing S92.012D and Heel pain, left M79.672 [facility] [address] [place] [address] [place] [address] 05/23/2024 Sandy Hernandez Displaced fracture of body of left [...] patient and all questions answered to patient's satisfaction.Patien t states since previous visit, no significant [...] 03/21/2024 Heel pain, left (ICD-10 - M79.672) 05/23/2024 Displaced fracture of body of left [...] either her primary care physician or her ACIDIZER and she is in full under standing of this. 05/23/2024 Heel pain, left (ICD-10 - M79.672) Plan Of Treatment Pending Test Test Name Order Date DEXA Axial Skeleton (hips, pelvis, spine )* 05/23/2024 XR calcaneus LT min 2V 03/22/2024 Insurance Providers Payer Name Payer Address Payer Phone Subscriber Number Group Number Insured Name Patient Relationship to Insured Coverage Start Date Coverage End Date [place]IC[place] [address] [place] [address] [phone] [id number] Elke Arzola Self - patient is the insured [employer] [facility] [place] [facility] 8 MEDICARE SUPP CLMS DEPT [place] [phone] [id number] PLAN G Elke Arzola Self - patient is the insured Medical (General) History Medical History History ICD Code left calcaneal fracture Surgical History Surgery Date(Month/Year) Polyp removed
--- OUTSIDE RECORDS SUMMARY | 2025-02-14 10:15 | XMS_ITS | Clinical Summary ---
Author Organization [facility] Address [address] [place] [address] Phone Care Team Providers Care School Office Manager Name Role Phone Rashard Flower DO Primary Care Provider [phone] Allergies No known active allergies Medications alendronate (Fosamax) 70 mg tablet t1 BY MOUTH one time per week take in the morning on a completely empty stomach. Do not lie down for 30 minutes after taking pill. 5 Active atorvastatin (Lipitor) 40 mg tablet Take 1 tablet (40 mg) by mouth once daily at bedtime. 5 Active budesonide-form oterol (Symbicort) 160-4.5 mcg/actuation inhaler Inhale 2 puffs 2 times a day. 5 Active Oysco 500/D 500 mg-5 mcg (200 unit) tablet Take 1 tablet by mouth 2 times daily (morning and late afternoon). 5 Active furosemide (Lasix) 20 mg tablet Take 1 tablet (20 mg) by mouth early in the morning.. 5 Active nitroglycerin (Nitrostat) 0.[address] 1 TAB UNDER TONGUE EVERY 5 MINUTES NEEDED FOR CHEST PAIN. DO NOT EXCEED 3 DOSES IN 15 MINUTES. GO TO ER IF PERSISTS. 5 Active metoprolol succinate XL (Toprol-XL) 25 mg 24 hr tablet TAKE 1/2 (ONE-HALF) OF A TABLET BY MOUTH DAILY FOR 90 DAYS 5 Active potassium chloride ER (Micro-K) 10 mEq ER capsule Take 1 capsule (10 mEq) by mouth early in the morning.. Active NON FORMULARY 40 drops trace mineral Active Active Problems Problem Noted Date Diagnosed Date Cor pulmonale (chronic) 01/21/2025 Assessment & Plan (01/21/2025 4:41 PM EDT): November 2024 TTE RV dilated with dysfunction RVPS 45-50mmHG > 100 pack year tobacco abuse Euvolemic in office Mixed hyperlipidemia 01/21/2025 Assessment & Plan (01/21/2025 4:41 PM EDT): Statin November 2024 discharge Body mass index (BMI) 19.9 or less, adult 2024 Former smoker 01/21/2025 Assessment & Plan (01/21/2025 11:46 AM EDT): Has been able to abstain since discharge Encounters Date Type Department Care Team Description 01/21/2025 11:30 AM EDT Office Visit [address] [phone] Melodie Ferro, PET CARE ASSISTANT-ACCOUNTING SYSTEMS ANALYST Mixed hyperlipidemia (Primary Dx); Cor pulmonale (chronic); Body mass index (BMI) 19.9 or less, adult; Former smoker 01/21/2025 Travel 12/28/[address] [address] Ching Abraham, RN Results 12/25/2024 8:25 AM EDT - 12/25/2024 11:59 PM EDT Hospital Encounter [address] [phone] Discharge Disposition: Home 12/25/2024 8:25 AM EDT - 12/25/2024 11:59 PM EDT Hospital Encounter [address] [phone] Discharge Disposition: Home 12/25/2024 8:25 AM EDT - 12/25/2024 11:59 PM EDT Hospital Encounter [address] [place] [phone] Discharge Disposition: Home 12/25/2024 8:25 AM EDT - 12/25/2024 11:59 PM EDT Hospital Encounter Anton Chicodee dee [facility] [address] [facility] [place] [phone] Discharge Disposition: Home 12/25/2024 8:25 AM EDT - 12/25/2024 11:59 PM EDT Hospital Encounter Nirmala [facility] [address] [place] [address] [phone] Heart failure, unspecified HF chronicity, unspecified heart failure type; Acute wgq-MV-delhler elevation myocardial infarction (Multi) Discharge Disposition: Home 12/25/2024 Travel 12/21/2024 Scanned Document [facility] [address] [place] [phone] Scanning, Generic Provider 11/30/2024 Scanned Document [facility] [address] [place] [address] Scanning, Generic Provider 11/29/2024 Telephone [facility] [address] [address] Nelyl Ross RN 11/28/2024 Scanned Document [facility] [address] [place] [phone] Scanning, Generic Provider 11/27/2024 Scanned Document [facility] [address] [place] [address] Scanning, Generic Provider from Last 3 Months Family History Medical History Relation Name Comments COPD Brother Diabetes Mother Heart attack Mother Kidney failure Mother Stroke Mother Relation Name Status Comments Brother Mother Social History Tobacco Use Types Packs/Day Years Used Date Smoking Tobacco: Former Cigarettes Smokeless Tobacco: Never Tobacco Cessation:Counseling Given: Not Answered Alcohol Use Standard Drinks/Week Comments Yes 0 (1 standard drink = 0.6 oz pur e alcohol) occasional Comments Unknown Sex and Gender Information Value Date Recorded Sex Assigned at Not on file Legal Sex Female 9:14 AM EST Gender Identity Not on file Sexual Orientation Not on file COVID-19 Exposure Response Date Recorded In the last 10 days, have yo u been in contact with someone who was confirmed or suspected to have Coronavirus/COVID-19? No / Unsure 01/21/2025 11:24 AM EDT Last Filed Vital Signs Vital Sign Reading Time Taken Comments Blood Pressure 92/58 01/21/2025 11:34 AM EDT Pulse - - Temperature - - Respiratory Rate - - Oxygen Saturation - - Inhaled Oxygen Concentration - - Weight 54.4 kg (120 lb) 01/21/2025 11:34 AM EDT Height 165.1 cm (5' 5 ) 01/21/2025 11:34 AM EDT Body Mass Index 19.97 01/21/2025 11:34 AM EDT Plan of Treatment Upcoming Encounters Date Type Department Care Team (Late st Contact Info) Description 10/30/2025 11:30 AM EST Office Visit [facility] [address] [facility] [address] [place] [address] Fish Patten, [address] [facility] [address] [place] [address] Health Maintenance Due Date Last Done Comments Bone Density Scan 1954 CT Colonography 1955 Colonoscopy 1955 Colorectal Cancer Screening 1955 Creatinine Level 1955 Echocardiogram 1955 FIT-DNA (Cologuard) 1954 FIT 1954 Lipid Panel 1955 Medicare Annual Wellness Vis it (AWV) 1955 Potassium Level 1954 Sigmoidoscopy 1954 Diabetes Screening 1972 Hepatitis C Screening 1972 Pneumococcal Vaccine (1 of 2 - PCV) 1973 DTaP/Tdap/Td Vaccines (1 - Tdap) 1976 Mammogram 1994 Zoster Vaccines (1 of 2) 2004 RSV High Risk: (Elderly (60+ ) or Population) (1 - Risk 60-74 years 1-dose series) 2014 COVID-19 Vaccine (1 - 2024-2 5 season) 2024 Influenza Vaccine (Season Ended) 2025 HIB Vaccines Aged Out No longer eligi ble based on patient's age to complete this topic HPV Vaccines Aged Out No longer eligi ble based on patient's age to complete this topic Hepatitis A Vaccines Aged Out No long er eligible based on patient's age to complete this topic Hepatitis B Vaccines Aged Out No long er eligible based on patient's age to complete this topic IPV Vaccines Aged Out No longer eligi ble based on patient's age to complete this topic Meningococcal Vaccine Aged Out No delilah sera eligible based on patient's age to complete this topic Rotavirus Vaccines Aged Out No longer eligible based on patient's age to complete this topic Procedures Procedure Name Priority Date/Time Associated Diagnosis Comments STRESS TEST, REGADENOSON W MYOCARDIAL PERFUSION SPECT (MULTI STUDY) Routine 12/25/2024 10:28 AM EDT Heart failure, unspecified HF chronicity, unspecified heart failure type Acute vdn-TW-kbqslal elevation myocardial infarction (Multi) OUTSIDE IMAGING SCAN 11/27/2024 from Last 3 Months Results * STRESS TEST, REGADENOSON W MYOCARDIAL PERFUSION SPECT (MULTI STUDY) (12/25/2024 10:28 AM EDT) Anatomical Region Laterality Modality Nuclear Medicine 12/26/2024 2:43 PM EDT 12/26/2024 2:43 PM EDT Impressions 12/26/2024 2:41 PM EDT Normal Lexiscan Myoview cardiac perfusion stress test. No evidence of ischemia or myocardial infarction by perfusion imaging. Normal left ventricular systolic function, ejection fraction 67%. No previous study available for comparison. Signed by: Robert Vallejo 12/26/2024 2:41 PM Dictation workstation: [id number] Narrative 12/26/2024 2:41 PM EDT Interpreted By: Robert Vallejo and Elias Steele STUDY: MYOCARDIAL PERFUSION STRESS TEST WITH LEXISCAN Performing facility: [facility], [address] [place] [address], [address], [place] [address] [facility] Provider: Alton Patten DO, [facility] PCP: Dr. Nhung Flower Supervising provider: Jaskaran Amador MD, [facility] INDICATION: Signs/Symptoms:heart failure. ,I50.9 Heart failure, unspecified (Multi),I21.4 Non-ST elevation (NSTEMI) myocardial infarction (Multi HISTORY: Gender: F; Age: 69 y/o ; Height: cm; Weight: kg. Previous NH; Family HX CAD; COPD;emphysema Resp. failure Pulm. HTN Quit smoking 28 days ago. COMPARISON: No comparison. ACCESSION NUMBER(S): [id number] ORDERING CLINICIAN: FISH PATTEN TECHNIQUE: ONE DAY protocol. Stress injection: Date:12-25-24, [...] There were no evidence of attenuation artifact. Procedure Note Robert Vallejo MD - 12/26/2024 Interpreted By: Robert Vallejo and Giannuzzi Michael STUDY: MYOCARDIAL PERFUSION STRESS TEST WITH LEXISCAN Performing facility: [facility], [address] [place] [address] [address], [place] [id number] [facility] Provider: Alton Patten DO, [facility] PCP: Dr. Nhung Flower Supervising provider: Jaskaran Amador MD, [facility] INDICATION: Signs/Symptoms:heart failure. ,I50.9 Heart failure, unspecified (Multi),I21.4 Non-ST elevation (NSTEMI) myocardial infarction (Multi HISTORY: Gender: F; Age: 69 y/o ; Height: cm; Weight: kg. Previous NH; Family HX CAD; COPD;emphysema Resp. failure Pulm. HTN Quit smoking 28 days ago. COMPARISON: No comparison. ACCESSION NUMBER(S): [id number] ORDERING CLINICIAN: FISH PATTEN TECHNIQUE: ONE DAY protocol. Stress injection: Date:12-25-24, [...] Robert Vallejo 12/26/2024 2:41 PM Dictation workstation: [id number] Fish Patten DO CV STRESS PROCEDURES Final Result * OUTSIDE IMAGING SCAN (11/27/2024) Anatomical Region Laterality Modality Other Narrative 11/27/2024 Ordered by an unspecified provider. Generic Provider Scanning OUTSIDE SCAN Final Result from Last 3 Months Insurance MEDICARE PART A AND B Member Subscriber Plan / Payer (Ef fective 2019-Present) Name:Elke Rico Member ID:[id number] Relation to Subscriber:Self Name:Elke Rico Subscriber ID:[id number] Payer ID:Not on file Group ID:Not on file Type:Not on file Address: [address] MEDICARE [place] [place] [address] Care Teams School Office Manager Relationship Specialty Start Date End Date Rashard Flower DO [address] [facility] [place] [address] PCP - General Family Medicine 11/29/24
--- OUTSIDE RECORDS SUMMARY | 2025-02-14 10:15 | XMS_ITS | Encounter Summary ---
Author Organization [facility] Address [address] [place] [address] Phone Care Team Providers Care Pressing Department Supervisor Name Role Phone Rashard Flower DO Primary Care Provider [phone] Encounter Details Date Type Department Care Team (Late st Contact Info) Description 11/28/2024 Scanned Document [facility] [address] [place] [phone] Scanning, Generic Provider Social History Tobacco Use [...] Description 10/30/2025 11:30 AM EST Office Visit [facility] [address] [facility] [address] [place] [phone] Shen Patten DO [address] [facility] [address] [place] [address] documented as of this encounter Visit Diagnoses Not on filedocumented in this encounter Care Teams Pressing Department Supervisor Relationship Specialty Start Date End Date Rashard Flower DO [address] [place] [address] PCP - General Family Medicine 11/29/24 documented as of this encounter
--- OUTSIDE RECORDS SUMMARY | 2025-02-14 10:15 | XMS_ITS | Encounter Summary ---
Author Organization [facility] Address [address] [place] [address] Phone Care Team Providers Care Mobile Application Architect Name Role Phone DouglasRashard rene Primary Care Provider [phone] Encounter Details Date Type Department Care Team (Late st Contact Info) Description 11/27/2024 Scanned Document [facility] [address] [place] [phone] Scanning, Generic Provider Social History Tobacco Use [...] EST Office Visit [facility] [address] [facility] [address] [place] [phone] Shen Patten DO [address] [facility] [address] [place] [address] documented as of this encounter Procedures Procedure Name Priority Date/Time Associated Diagnosis Comments OUTSIDE IMAGING SCAN 11/27/2024 documented in this encounter Results * OUTSIDE IMAGING SCAN (11/27/2024) Anatomical Region Laterality Modality Other Narrative 11/27/2024 Ordered by an unspecified provider. us Generic Provider Scanning OUTSIDE SCAN Final Result documented in this encounter Visit Diagnoses Not on filedocumented in this encounter Care Teams Mobile Application Architect Relationship Specialty Start Date End Date Rashard Flower DO [address] [facility] [address] PCP - General Family Medicine 11/29/24 documented as of this encounter
--- NOTE | 2025-02-14 10:18 | XR_ITS ---
The [address] [address] Patient Name: HÉCTOR PRIEST MRN: [id number] date: 1955 Sex: F Assigned Patient Location: [facility] Current Patient Location: [facility] Accession/Order Number: [id number] Exam Date: 02/14/2025 10:50 Report Date: 02/14/2025 10:54 At the request of: SANDY TUCKER DPM Procedure: XR foot LT min 3V LEFT FOOT - 4 views CLINICAL DATA: Chronic left foot pain, greatest laterally at the heel. Previous surgery. COMPARISON: 01/03/2024 Weightbearing AP, lateral and oblique views were obtained along with a tangential view of the calcaneus. There is severe osteopenia which slightly limits evaluation. There is no acute fracture or dislocation. No bony destruction or significant degenerative change is seen. There is no soft tissue swelling. XR/XR foot LT min 3V IMPRESSION: PROMINENT OSTEOPENIA. NO ACUTE BONY FINDINGS. Impression dictated by: Mary Granados M.D. 02/14/2025 10:54 AM Dictation Location: [place] [address] Electronically authenticated by: [id number] Date: 02/14/2025 10:54
== END 2025-02-14 10:11 | disposition home or self-care (01) ==
LOC: RAD 10:13
PROVIDERS: PCP Family Medicine; Visit Provider Podiatrist Foot & Ankle Surgery
DX: M79.672 Pain in left foot (principal); M85.872 Other specified disorders of bone density and structure, left ankle and foot
CPT/HCPCS: 73630